=== PATIENT | female | born 1975 | race Caucasian/White ===

== ENCOUNTER → 2019-02-28 09:48 | Outpatient (CLI) | payer OTHER, SELFPAY ==
--- NOTE | 2019-02-28 09:50 | MR_ITS ---
PROCEDURE: MR LUMBAR SPINE WO CON CLINICAL INDICATION: back pain COMPARISON: No exams were available for comparison TECHNIQUE: Standard multiplanar multiecho sequences are performed without contrast. 3-D MIP and myelographic images are also rendered and reviewed FINDINGS: Alignment, vertebral body heights and signal from the osseous marrow elements appear normal. L4-5 level shows mild loss of disc hydration with mild bulge with central punctate focus of fluid signal suggesting annular tear. This finding as well as mild facet hypertrophy causes mild to moderate generalized thecal sac attenuation and mild crowding of the cauda equina nerve roots. The remainder of the disc levels are normal without bulges or herniation or central stenosis. Posterior elements are otherwise unremarkable. Nerve roots in the foraminal areas are normal. Conus is normal. Paraspinal areas are unremarkable. IMPRESSION: L4-5 degenerative change with bulge and annular tear along with facet arthrosis causing mild to moderate acquired central canal stenosis. Dictated by: Micah Mock 02/28/2019 11:15 Electronically signed by Micah Mock in [facility] 02/28/2019 11:15
--- NOTE | 2019-02-28 09:50 | US_ITS ---
PROCEDURE: US GALLBLADDER CLINICAL INDICATION: gastric pain COMPARISON: No exams were available for comparison FINDINGS: Common bile duct is normal measuring 2.9 millimeters. Visualized portions of the pancreas, IVC, portal vein, liver and right kidney are normal. There are multiple shadowing gallstones without fluid in the gallbladder fossa. The gallbladder wall is 2.1 millimeters in diameter which is normal. IMPRESSION: Uncomplicated cholelithiasis. Dictated by: Micah Mock 02/28/2019 13:01 Electronically signed by Micah Mock in [facility] 02/28/2019 13:01
== END ==
PROVIDERS: PCP Emergency Medicine; Visit Provider Emergency Medicine
DX: M54.5 Low back pain (principal); R10.9 Unspecified abdominal pain
CPT/HCPCS: 72148; 76376; 76705

== ENCOUNTER → 2019-03-06 13:19 | Outpatient (CLI) | payer OTHER, SELFPAY ==
[2019-03-06 13:32] LABS: Basophils % 0.6 % (0.1-2.0); Eosinophils # 0.1 K/mm3 (0.0-0.4); Eosinophils % 0.9 % (0.1-12.0); Hematocrit 40.7 % (37.0-47.0); Hemoglobin 12.8 g/dL (12.2-16.2); Lymphocytes # 1.4 K/mm3 (0.7-4.5); Lymphocytes % 25.4 % (10-50); Mean Corpuscular HGB Conc 31.4 g/dL (31.8-35.4); Mean Corpuscular Hemoglobin 28.8 pg (27.0-31.2); Mean Corpuscular Volume 91.5 fl (81-99); Mean Platelet Volume 7.7 fl (7.4-10.4); Monocytes # 0.4 K/mm3 (0.1-1.0); Monocytes % 6.6 % (1.7-9.3); Neutrophils # 3.6 K/mm3 (1.8-7.8); Neutrophils % 66.6 % (37.0-80.0); Platelet Count 359 K/mm3 (142-424); Red Blood Count 4.44 M/mm3 (4.20-5.40); Red Cell Distribution Width 14.1 % (11.5-17.5); White Blood Count 5.4 K/mm3 (4.8-10.8)
[2019-03-06 16:53] LABS: Alanine Aminotransferase 26 U/L (12-78); Albumin Level 4.2 gm/dL (3.4-5.0); Albumin/Globulin Ratio 1.2 (1.1-1.8); Alkaline Phosphatase 169 U/L (46-116); Anion Gap 13.2 mEq/L (5-15); Aspartate Amino Transferase 16 U/L (15-37); Bilirubin,Total 0.3 mg/dL (0.2-1.0); Blood Urea Nitrogen 7 mg/dL (7-18); Calcium 9.2 mg/dL (8.5-10.1); Carbon Dioxide 30 mmol/L (21.0-32.0); Chloride 91 mmol/L (98-107); Creatinine,Serum 0.67 mg/dL (0.55-1.02); Estimated Glomerular Filt Rate 97 ml/min (>60); GFR (African American) 117 ML/MIN (>60); Globulin 3.6 gm/dl (1.3-3.2); Glucose 87 mg/dL (74-106); Potassium 4.2 mmoL/L (3.5-5.1); Sodium 130 mmol/L (136-145); Total Protein,Serum 7.8 gm/dL (6.4-8.2)
== END ==
PROVIDERS: Visit Provider Surgery
DX: K80.20 Calculus of gallbladder without cholecystitis without obstruction (principal)
CPT/HCPCS: 36415; 80053; 85025

== ENCOUNTER → 2019-03-21 09:11 | Outpatient (POV) | payer OTHER, SELFPAY ==
[2019-03-21 09:30] VITALS: BP 124/64; PULSE 101; RESP 18; O2SAT 99; BMI 23.6
--- NOTE | 2019-03-21 10:10 | HMH.PMCON ---
Assessment and Plan (1) Low back pain Current visit: Yes Status: Chronic Qualifiers: Chronicity: chronic Category: Medical Code(s): M54.5 - Low back pain - Assessment and plan all Dx Assessment and Plan for all problems:: Given the patient's imaging and complaints, I do think she would benefit from a lumbar epidural steroid injection. She has not had any injections for greater than 5 years. We will schedule her for a lumbar epidural steroid injection at L4-L5. She is not on any anticoagulation therapy. She will continue with a home stretching program. We will also order the patient diclofenac 75 mg 1 tablet p.o. twice daily. We will see her back in the clinic following her procedure to reassess her symptoms. She has been instructed to contact the clinic if she has any concerns before her next appointment. Dr. Cao has reviewed this note and agrees with this plan of care. This note was dictated using voice recognition software and make contain errors or omissions. HPI - Data of Consult Patient: new to practice Consult date: 03/21/19 Requesting Physician: Zeina Lynn APRN Primary Care Provider: Bienvenido Gallegos MD - Consult Narrative History of present illness: Ms. Galvez is a 43 year old female who presents today for consultation for low back pain with radiation into her left leg. Patient says the pain has been ongoing for greater than 15 years. She says her pain starts in the low back radiates to the left leg causing numbness and tingling. Patient says that she is unable to walk or stand for more than 5 minutes. She says her left foot feels like it is going to fall off . Patient has tried injective therapy and has gotten little to no relief. She also says that she has tried physical therapy with out relief. Patient has tried oral medications, as well. Patient is currently taking gabapentin 100 mg 1 tablet p.o. 3 times daily. She says that she got about 20% relief with her gabapentin. Patient says that it is progressively getting worse. She is not taking any anti-inflammatories at this time. She is continuing with a home stretching program. Patient does rate her pain a 7 out of 10. CC: Zeina Lynn APRN [facility] History I have reviewed the patient's past medical history: Yes Medical History: Reports:: Anxiety, Depression Denies:: Cancer, Diabetes Mellitus Type 1, Diabetes Mellitus Type 2, MRSA, Seizures *Have you ever received a pneumonia vaccine?: No *Have you received a flu vaccine this season?: No Other Medical History: Denies: Blood Transfusion Reaction Laterality Cases: Left: Arthroscopy Knee, Right: Arthroscopy Shoulder Other Surgeries: Yes: Cholecystectomy, Diagnostic Lap, Hysterectomy-Total, Tubal Ligation Amputation: No Fractures: Yes - *Social History Smoking Status: Current every day smoker Tobacco Type: cigarettes # Packs/Day (cigarettes): 1 Alcohol Intake: never Alcohol Intake Frequency:: other Substance Use Type: denies use *Occupational Status:: employed Housing: house Household Members: family *Travel in the last 8 weeks: None - Psychiatric History Pschychiatric History:: Reports:: Anxiety, Depression Family Hx:: Cancer, Diabetes, Thyroid Disorder, Substance abuse Review of Systems - Review of Systems Review of Systems General: No recent weight changes, no fever, no sleep disturbances Respiratory: No cough, no shortness of air, no recurring pulmonary infections Cardiovascular/peripheral vascular: No chest pain, no palpitations, no edema, no shortness of breath Gastrointestinal: No new onset incontinence, normal bowel movements reported Genitourinary: No new onset incontinence Musculoskeletal: Back pain, left leg pain Psychiatric: Normal mood/affect Neurological: [Denies weakness in extremities], [denies balance issues] Meds Home Medications Medication Instructions Recorded Confirmed Type mirtazapine 15 mg tablet 15 mg PO QHS tab
--- NOTE | 2019-03-21 10:14 | P.CONS_ITS ---
Assessment and Plan (1) Low back pain Current visit: Yes Status: Chronic Qualifiers: Chronicity: chronic Category: Medical Code(s): M54.5 - Low back pain - Assessment and plan all Dx Assessment and Plan for all problems:: Given the patient's imaging and complaints, I do think she would benefit from a lumbar epidural steroid injection. She has not had any injections for greater than 5 years. We will schedule her for a lumbar epidural steroid injection at L4-L5. She is not on any anticoagulation therapy. She will continue with a home stretching program. We will also order the patient diclofenac 75 mg 1 tablet p.o. twice daily. We will see her back in the clinic following her procedure to reassess her symptoms. She has been instructed to contact the clinic if she has any concerns before her next appointment. Dr. Cao has reviewed this note and agrees with this plan of care. This note was dictated using voice recognition software and make contain errors or omissions. HPI - Data of Consult Patient: new to practice Consult date: 03/21/19 Requesting Physician: Zenia Lynn APRN Primary Care Provider: Bienvenido Gallegos MD - Consult Narrative History of present illness: Ms. Galvez is a 43 year old female who presents today for consultation for low back pain with radiation into her left leg. Patient says the pain has been ongoing for greater than 15 years. She says her pain starts in the low back radiates to the left leg causing numbness and tingling. Patient says that she is unable to walk or stand for more than 5 minutes. She says her left foot feels like it is going to fall off . Patient has tried injective therapy and has gotten little to no relief. She also says that she has tried physical therapy with out relief. Patient has tried oral medications, as well. Patient is currently taking gabapentin 100 mg 1 tablet p.o. 3 times daily. She says that she got about 20% relief with her gabapentin. Patient says that it is progressively getting worse. She is not taking any anti-inflammatories at this time. She is continuing with a home stretching program. Patient does rate her pain a 7 out of 10. CC: Zeina Lynn APRN [facility] History I have reviewed the patient's past medical history: Yes Medical History: Reports:: Anxiety, Depression Denies:: Cancer, Diabetes Mellitus Type 1, Diabetes Mellitus Type 2, MRSA, Seizures *Have you ever received a pneumonia vaccine?: No *Have you received a flu vaccine this season?: No Other Medical History: Denies: Blood Transfusion Reaction Laterality Cases: Left: Arthroscopy Knee, Right: Arthroscopy Shoulder Other Surgeries: Yes: Cholecystectomy, Diagnostic Lap, Hysterectomy-Total, Tubal Ligation Amputation: No Fractures: Yes - *Social History Smoking Status: Current every day smoker Tobacco Type: cigarettes # Packs/Day (cigarettes): 1 Alcohol Intake: never Alcohol Intake Frequency:: other Substance Use Type: denies use *Occupational Status:: employed Housing: house Household Members: family *Travel in the last 8 weeks: None - Psychiatric History Pschychiatric History:: Reports:: Anxiety, Depression Family Hx:: Cancer, Diabetes, Thyroid Disorder, Substance abuse Review of Systems - Review of Systems Review of Systems General: No recent weight changes, no fever, no sleep disturbances Respiratory: No cough, no shortness of air, no recurring pulmonary infections Cardiovascular/peripheral vascular: No chest pain, no palpitations, no edema, no shortness of breath Gastrointestinal: No ne
== END ==
PROVIDERS: PCP Emergency Medicine; Visit Provider Clinical Nurse Specialist Family Health
DX: M54.5 Low back pain (principal)
CPT/HCPCS: 99202

== ENCOUNTER → 2020-01-31 15:22 | Outpatient (CLI) | payer OTHER, SELFPAY ==
[2020-02-02 09:11] LABS: Covid-19 Nasal PCR Sendout UK Not Detected
== END ==
PROVIDERS: PCP Emergency Medicine; Visit Provider Nurse Practitioner
DX: Z03.818 Encounter for observation for suspected exposure to other biological agents ruled out (principal)
CPT/HCPCS: U0003

== ENCOUNTER → 2020-02-05 16:29 | Outpatient (CLI) | payer OTHER, SELFPAY ==
[2020-02-07 13:35] LABS: Covid-19 Nasal PCR Sendout Lex Not Detected
--- NOTE | 2020-02-09 14:21 | PC.NURSE ---
Pt called for covid results; results given after verification of id. results printed out as pt needs copy to go back to work
== END ==
PROVIDERS: PCP Emergency Medicine; Visit Provider Nurse Practitioner
DX: Z03.818 Encounter for observation for suspected exposure to other biological agents ruled out (principal)
CPT/HCPCS: U0004

== ENCOUNTER 2020-02-27 12:17 | Emergency (ER) | payer OTHER, SELFPAY ==
[2020-02-27 12:35] VITALS: BP 98/65; PULSE 85; RESP 20; TEMP 36.9; O2SAT 98; BMI 20.7
--- NOTE | 2020-02-27 12:45 | HMH.EDUTC ---
[facility] Disposition Clinical Impression: Exposure to COVID-19 virus Disposition: Home, Self-Care Condition on Discharge: Good Instructions: Preventing the Spread of Coronavirus Discharge Instructions Additional Instructions: Drink plenty of fluids. Take tylenol or ibuprofen for pain or fever. Follow up with your regular doctor. GO TO THE ER FOR ANY WORSENING SYMPTOMS FOLLOW THE DIRECTIONS ON THE COVID-19 HAND OUT THAT WE GAVE YOU REGARDING SELF-ISOLATION UNTIL YOU KNOW YOUR COVID-19 RESULTS Referrals: Bienvenido Gallegos MD [Primary Care Provider] - Time of Disposition: 12:46 Medical Decision Making - Medical Records Medical records reviewed: No: I reviewed the patient's medical records. - [place] Inquiry Pt receiving controlled substance: No Vital Signs: 02/27/20 12:35 Temperature 98.5 F Temperature Source Oral Pulse Rate [Right Brachial] 85 Respiratory Rate 20 Blood Pressure [Right Arm] 98/65 L Blood Pressure Mean [Right Arm] 76 Blood Pressure Source [Right Arm] Automatic Cuff Blood Pressure Position [Right Arm] Sitting 02 Sat by Pulse Oximetry 98 Oxygen Delivery Method Room Air Orders (Tests/Meds): ORDERS Category Date Time Status Covid-19 Nasal PCR ([facility]) Routine Lab 02/27/20 12:22 Ordered [facility] HPI - General Stated complaint: covid test per employer Time Seen by Provider: 02/27/20 12:40 Mode of Arrival: Ambulatory Source of Information: Patient Limitations: No Limitations Description of Symptoms (Recalled from Triage Doc. by RN): PATIENT NEEDING COVID TEST PER NEW EMPLOYER; DENIES ANY SYMPTOMS HEENT Symptoms (Recalled from RN notes): No Resp Symptoms (Recalled from RN notes): No Skin Symptoms (Recalled from RN notes): No MS Symptoms (Recalled from RN notes): No Functional Status (Recalled from RN notes): WNL - History of Present Illness Provider Complaint: She denies any complaints. She needs a covid-19 test for a new employer. - Related Data Home Medications Medication Instructions Recorded Confirmed mirtazapine 15 mg tablet 15 mg PO QHS PRN tab 10/16/19 12/18/19 Previous Rx's Medication Instructions Recorded gabapentin 800 mg tablet 800 mg PO TID #90 tab 11/18/19 oxycodone-acetaminophen 5 mg-325 1 tab PO TID #90 tab 12/18/19 mg tablet Allergies Allergy/AdvReac Type Severity Reaction Status Date / Time acetaminophen Allergy Intermediate Verified 12/18/19 10:29 [From Darvocet-N] codeine Allergy Intermediate Verified 12/18/19 10:29 [From Tylenol-Codeine] hydrocodone [From Vicodin] Allergy Intermediate Verified 12/18/19 10:29 propoxyphene Allergy Intermediate Verified 12/18/19 10:29 [From Darvocet-N] tramadol Allergy Intermediate Verified 12/18/19 10:29 morphine Allergy Verified 12/18/19 10:29 - Worker's Comp Is this a Worker's Comp case?: No [facility] History - Hepatitis A Screen Drug use history?: No High risk sexual behaviors?: No History of sexually transmitted infection?: No Currently employed?: No Childcare worker?: No Do you have indoor plumbing?: Yes Do you have electricity?: Yes Attestation statement:: This patient has been screened for Hepatitis A risk factors. I have reviewed the patient's past medical history: Yes Medical History: Reports:: Anxiety, Depression Denies:: Cancer, Diabetes Mellitus Type 1, Diabetes Mellitus Type 2, Internal Pacemaker, MRSA, Seizures Other Medical History: Reports: Blood Transfusion Reaction Comment: IBS. PELVIC ADHESIONS. ENDOMETRIOSIS Laterality Cases: Right: Arthroscopy Shoulder, Bilateral: Arthroscopy Knee Other Surgeries: Yes: Cholecystectomy, Diagnostic Lap, Hysterectomy-Total, Tubal Ligation. No: Pacemaker Amputation: No Fractures: Yes Comment: BTL---2000. BTC---2000. TVH, TVT-O, DX. LSC, EXP. LAP, D&C---2003. left and rt knee sx. RT. SHOULDER SX W. PLATE AND ANGEL---2004. DX. LAP, EXPL. LAP, RT. SO, EXTENSIVE LYSIS OF ADHESIONS, PARTIAL OMENX---2005. R
[2020-02-27 12:48] VITALS: BP 98/65; PULSE 85; RESP 20; TEMP 36.9; O2SAT 98
== END 2020-02-27 12:51 | disposition home or self-care (01) ==
PROVIDERS: Emergency Provider Nurse Practitioner Family; PCP Emergency Medicine
DX: Z20.828 Contact with and (suspected) exposure to other viral communicable diseases (principal); F41.8 Other specified anxiety disorders; F17.210 Nicotine dependence, cigarettes, uncomplicated; Z88.5 Allergy status to narcotic agent; Z90.49 Acquired absence of other specified parts of digestive tract; Z90.710 Acquired absence of both cervix and uterus
CPT/HCPCS: 99201; U0003

== ENCOUNTER → 2021-01-12 15:22 | Outpatient (CLI) | payer OTHER, SELFPAY ==
[2021-01-12 15:49] LABS: Basophils % 0.6 % (0.1-2.0); Eosinophils # 0.1 K/mm3 (0.0-0.4); Eosinophils % 1.9 % (0.1-12.0); Hematocrit 39.8 % (37.0-47.0); Hemoglobin 12.9 g/dL (12.2-16.2); Lymphocytes # 2.2 K/mm3 (0.7-4.5); Lymphocytes % 42.3 % (10-50); Mean Corpuscular HGB Conc 32.6 g/dL (31.8-35.4); Mean Corpuscular Hemoglobin 28.9 pg (27.0-31.2); Mean Corpuscular Volume 88.8 fl (81-99); Mean Platelet Volume 8.9 fl (7.4-10.4); Monocytes # 0.3 K/mm3 (0.1-1.0); Monocytes % 5.4 % (1.7-9.3); Neutrophils # 2.6 K/mm3 (1.8-7.8); Neutrophils % 49.8 % (37.0-80.0); Platelet Count 226 K/mm3 (142-424); Red Blood Count 4.48 M/mm3 (4.20-5.40); Red Cell Distribution Width 13.2 % (11.5-17.5); White Blood Count 5.2 K/mm3 (4.8-10.8)
[2021-01-12 15:51] LABS: Alanine Aminotransferase 14 U/L (12-78); Albumin Level 4.5 g/dl (3.5-5.0); Albumin/Globulin Ratio 1.6 (1.1-1.8); Alkaline Phosphatase 89 U/L (38-126); Anion Gap 8.1 mEq/L (5-15); Aspartate Amino Transferase 27 U/L (14-36); Bilirubin,Total 0.6 mg/dl (0.2-1.3); Blood Urea Nitrogen 10 mg/dl (7-17); Calcium 9.4 mg/dl (8.4-10.2); Carbon Dioxide 34 mmol/L (22.0-30.0); Chloride 101 mmol/L (98-107); Chol/HDL Ratio 2.3 (1-3.5); Cholesterol 179 mg/dl (140-200); Estimated Glomerular Filt Rate 91 ml/min (>60); GFR (African American) 110 ML/MIN (>60); Globulin 2.9 g/dL (1.3-3.2); Glucose 97 mg/dl (74-100); HDL Cholesterol 78 mg/dl (40-60); Potassium 4.1 mmoL/L (3.5-5.1); Sodium 139 mmol/L (136-145); Total Protein,Serum 7.4 g/dl (6.3-8.2); Triglycerides 123 mg/dl (30-150); VLDL Cholesterol 25 mg/dL (0-40)
[2021-01-12 16:02] LABS: C-Reactive Protein 1.5 mg/L (0-4); Direct LDL Cholesterol 72.86 mg/dL (100-129)
[2021-01-12 16:08] LABS: Free T4 (Free Thyroxine) 1.24 ng/dl (0.78-2.19)
[2021-01-12 16:09] LABS: 25-OH Vitamin D, Total 50.3 ng/mL (30-100)
[2021-01-12 16:19] LABS: Erythrocyte Sedimentation Rate 16 mm/hr (0-20)
[2021-01-12 16:22] LABS: Thyroid Stimulating Hormone 1.96 uIU/mL (0.465-4.68)
== END ==
PROVIDERS: Visit Provider Emergency Medicine
DX: R53.83 Other fatigue (principal); E55.9 Vitamin D deficiency, unspecified
CPT/HCPCS: 80053; 80061; 82306; 84439; 84443; 85025; 85651; 86140

== ENCOUNTER → 2021-02-15 16:31 | Outpatient (CLI) | payer OTHER, SELFPAY | PROVIDERS: PCP Emergency Medicine; Visit Provider Nurse Practitioner | DX: Z20.822 Contact with and (suspected) exposure to COVID-19 (principal) | CPT/HCPCS: C9803; U0003; U0005 ==

== ENCOUNTER → 2021-03-26 10:52 | Outpatient (CLI) | payer OTHER, SELFPAY | PROVIDERS: PCP Emergency Medicine; Visit Provider Nurse Practitioner | DX: Z20.822 Contact with and (suspected) exposure to COVID-19 (principal) | CPT/HCPCS: C9803; U0003; U0005 ==

== ENCOUNTER → 2021-06-01 14:13 | Outpatient (CLI) | payer OTHER, SELFPAY ==
[2021-06-01 16:03] LABS: Amphetamine/Metha Screen,Urine Negative ng/ml (<1000); Barbiturates Screen,Urine Negative ng/ml (<200)
[2021-06-01 16:04] LABS: Cannabinoid Screen,Urine Negative ng/ml (<50)
[2021-06-01 16:05] LABS: Cocaine Screen,Urine Negative ng/ml (<300)
[2021-06-01 16:06] LABS: Methadone Screen,Urine Negative ng/ml (<300); Opiate Screen,Urine Negative ng/ml (<300)
[2021-06-01 16:07] LABS: Phencyclidine Screen,Urine Negative ng/ml (<25)
[2021-06-01 16:15] LABS: Benzodiazepines Screen,Urine Negative ng/ml (<200)
== END ==
PROVIDERS: Visit Provider Emergency Medicine
DX: Z79.899 Other long term (current) drug therapy (principal)
CPT/HCPCS: 80305

== ENCOUNTER 2021-06-19 13:00 | Emergency (ER) | payer OTHER, SELFPAY ==
[2021-06-19 13:36] VITALS: BP 0/0; PULSE 0; RESP 0; TEMP -17.7; TEMP 0
== END 2021-06-19 13:37 | disposition left against medical advice (07) ==
LOC: UTC 13:02
PROVIDERS: Emergency Provider Nurse Practitioner Family; PCP Emergency Medicine
DX: Z53.21 Procedure and treatment not carried out due to patient leaving prior to being seen by health care provider (principal)

== ENCOUNTER → 2021-06-19 13:32 | Outpatient (CLI) | payer OTHER, SELFPAY | PROVIDERS: PCP Emergency Medicine; Visit Provider Nurse Practitioner Family | DX: U07.1 COVID-19 (principal) | CPT/HCPCS: C9803; U0003; U0005 ==

== ENCOUNTER → 2021-12-20 10:39 | Outpatient (CLI) | payer OTHER, SELFPAY ==
[2021-12-20 11:20] LABS: Eosinophils # 0.1 K/mm3 (0.0-0.4); Eosinophils % 1.9 % (0.1-12.0); Hemoglobin 13.2 g/dL (12.2-16.2); Lymphocytes # 1.8 K/mm3 (0.7-4.5); Lymphocytes % 49.6 % (10-50); Mean Corpuscular HGB Conc 33.1 g/dL (31.8-35.4); Mean Corpuscular Hemoglobin 29.4 pg (27.0-31.2); Mean Platelet Volume 7.8 fl (7.4-10.4); Monocytes # 0.2 K/mm3 (0.1-1.0); Neutrophils # 1.5 K/mm3 (1.8-7.8); Neutrophils % 41.5 % (37.0-80.0); Platelet Count 208 K/mm3 (142-424); Red Cell Distribution Width 12.8 % (11.5-17.5); White Blood Count 3.7 K/mm3 (4.8-10.8)
[2021-12-20 11:40] LABS: Chloride 98 mmol/L (98-107)
[2021-12-20 11:41] LABS: Potassium 4.2 mmoL/L (3.5-5.1); Sodium 139 mmol/L (136-145)
[2021-12-20 11:43] LABS: Alanine Aminotransferase 17 U/L (12-78); Alkaline Phosphatase 103 U/L (38-126); Anion Gap 11.2 mEq/L (5-15); Aspartate Amino Transferase 36 U/L (14-36); Bilirubin,Direct 0.1 mg/dl (0.0-0.4); Bilirubin,Indirect 0.3 mg/dL (0.0-0.9); Bilirubin,Total 0.4 mg/dl (0.2-1.3); Bilirubin,Unconjugated 0.3 mg/dL (0.0-1.1); Blood Urea Nitrogen 5 mg/dl (7-17); Calcium 10.1 mg/dl (8.4-10.2); Carbon Dioxide 34 mmol/L (22.0-30.0); Estimated Glomerular Filt Rate 90 ml/min (>60); GFR (African American) 109 ML/MIN (>60); Glucose 112 mg/dl (74-100)
[2021-12-20 11:44] LABS: Albumin Level 4.7 g/dl (3.5-5.0); Total Protein,Serum 7.8 g/dl (6.3-8.2)
[2021-12-23 22:11] LABS: Hepatitis C Antibody 0.2
[2021-12-23 22:12] LABS: HIV Screen 4th Generation wRfx Non Reactive; Hep A Ab, IgM Negative; Hepatitis B Core Antibody IgM Negative; Hepatitis B Surface Antigen Negative
== END ==
PROVIDERS: PCP Emergency Medicine; Visit Provider Emergency Medicine
DX: F11.20 Opioid dependence, uncomplicated (principal)
CPT/HCPCS: 36415; 80048; 80074; 80076; 85025; 86703; G0432

== ENCOUNTER → 2022-02-01 14:38 | Outpatient (CLI) | payer OTHER, SELFPAY | PROVIDERS: PCP Emergency Medicine; Visit Provider Emergency Medicine | DX: U07.1 COVID-19 (principal) | CPT/HCPCS: C9803; U0003; U0005 ==

== ENCOUNTER 2022-05-09 18:06 | Emergency (ER) | payer OTHER, SELFPAY ==
[2022-05-09 18:11] VITALS: BP 102/55; PULSE 72; RESP 18; TEMP 36.7; O2SAT 98; BMI 19.5
--- NOTE | 2022-05-09 18:51 | XR_ITS ---
PROCEDURE INFORMATION: Exam: XR Chest Exam date and time: 05/09/2022 7:15 PM Age: 46 years old Clinical indication: Cough and fever; Additional info: Concern for pneumonia TECHNIQUE: Imaging protocol: Radiologic exam of the chest. Views: 1 view. COMPARISON: No relevant prior studies available. FINDINGS: Lungs: Stigmata of old granulomatous disease. Bilateral apical scarring. No consolidating pneumonia. Pleural spaces: Unremarkable. No pleural effusion. No pneumothorax. Heart/Mediastinum: Unremarkable. No cardiomegaly. Bones/joints: Postsurgical changes of the right humerus. IMPRESSION: No consolidating pneumonia.
[2022-05-09 18:59] LABS: Coronavirus 19, PCR Not Detected (NotDetected); Influenza A, PCR Not Detected (NotDetected); Influenza B, PCR Not Detected (NotDetected)
[2022-05-09 19:30] VITALS: BP 85/53; PULSE 59; O2SAT 99
--- NOTE | 2022-05-09 19:51 | HMH.EDGENADL ---
Discharge Plan Disposition Patient Disposition: Home, Self-Care Prescriptions Prescriptions: New azithromycin [azithromycin] 250 mg tablet 250 mg PO DIRECTED Qty: 6 0RF Rx Instructions: Take two (2) tablets on day #1, then one (1) tablet day #2 thru #5 prednisone [prednisone] 20 mg tablet 20 mg PO BID Qty: 10 0RF No Action buprenorphine-naloxone 8-2 mg tablet, sublingual 1.5 tab SUBLINGUAL DAILY gabapentin 800 mg tablet 800 mg PO QID Qty: 120 2RF mirtazapine [Remeron] 15 mg tablet 7.5 mg PO DAILY Qty: 60 0RF bupropion HCl 75 mg tablet See Rx Instructions .ROUTE .COMPLEX Qty: 60 5RF Dose Instruction: TAKE ONE TABLET BY MOUTH TWICE DAILY Rx Instructions: TAKE ONE TABLET BY MOUTH TWICE DAILY Referrals Follow up/Referrals: Bienvenido Gallegos MD [Primary Care Provider] - See instructions Clinical Impressions Clinical Impression: Acute viral syndrome Discharge ED Provider: Jj Oropeza General Adult HPI General Chief complaint: Upper Respiratory Infection Stated complaint: body aches, fever, sore throat Time Seen by Provider: 05/09/22 18:15 Mode of Arrival: Ambulatory Source of Information: Patient Limitations: No Limitations Description of Symptoms (Recalled from ER Triage Doc. by RN): Pt reports cough, headache, body aches, sore throat, tired feeling and fever today. History of Present Illness HPI narrative: Patient is a 46-year-old female who presents with multiple complaints. She says that today she started to get cough, headache, body aches, sore throat, malaise and fever. She says that it got progressively worse and she has pain throughout her entire body. She has felt a little nauseous but has not vomited. Has not taken anything for symptoms. She has had cough and congestion as well. Denies any chest pain. Denies any pain with deep inspiration. She does endorse some green sputum production. Related Data Home Medications Medication Instructions Recorded Confirmed buprenorphine 8 mg-naloxone 2 mg 1.5 tab sublingual DAILY 01/12/21 02/14/22 sublingual tablet Previous Rx's Medication Instructions Recorded mirtazapine 15 mg tablet (Remeron) 7.5 mg PO DAILY #60 tabs 01/13/22 gabapentin 800 mg tablet 800 mg PO QID #120 tabs 02/14/22 bupropion HCl 75 mg tablet See Rx Instructions .Route 02/28/22 .COMPLEX #60 tabs azithromycin 250 mg tablet 250 mg PO DIRECTED #6 tabs 05/09/22 prednisone 20 mg tablet 20 mg PO BID #10 tabs 05/09/22 Allergies Allergy/AdvReac Type Severity Reaction Status Date / Time acetaminophen Allergy Intermediate Verified 02/14/22 11:01 [From Darvocet-N] codeine Allergy Intermediate Verified 02/14/22 11:01 [From Tylenol-Codeine] hydrocodone [From Vicodin] Allergy Intermediate Verified 02/14/22 11:01 propoxyphene Allergy Intermediate Verified 02/14/22 11:01 [From Darvocet-N] tramadol Allergy Intermediate Verified 02/14/22 11:01 morphine Allergy Verified 02/14/22 11:01 [facility] Disclaimer: The information contained in this section may have been updated after the patient was seen, as this information can be updated by other users. Social History Smoking Status: Current every day smoker tobacco type: e-cigarettes second hand exposure: No alcohol intake: never substance use type: former substance user current occupational status: other Travel in the last 8 weeks: None household members: family housing: house caffeine: Yes ROS Obtained: Yes All systems reviewed & no additional complaints except as documented A 14 point review of system was obtained and otherwise negative except per HPI Physical Exam General General appearance: alert and in no apparent distress Head Head exam: atraumatic, normocephalic and normal inspection Eye Eye exam: Present normal appearance, PERRL and EOMI ENT ENT exam: Present dayna
[2022-05-09 20:52] VITALS: BP 110/63; PULSE 62; RESP 18; TEMP 36.6; O2SAT 98
[2022-05-09 20:56] VITALS: BP 110/63; PULSE 58; RESP 16; TEMP 37.2; O2SAT 98
== END 2022-05-09 20:55 | disposition home or self-care (01) ==
PROVIDERS: Emergency Provider Student in an Organized Health Care Education/Training Program; PCP Emergency Medicine
DX: R52 Pain, unspecified (principal); R50.9 Fever, unspecified; J02.9 Acute pharyngitis, unspecified; B34.9 Viral infection, unspecified
CPT/HCPCS: 71045; 96372; 99283; C9803; U0003; U0005

== ENCOUNTER → 2022-05-11 15:15 | Outpatient (CLI) | payer OTHER, SELFPAY ==
[2022-05-11 17:12] LABS: Adenovirus,PCR Not Detected (NotDetected); Bordetella Pertussis Not Detected (NotDetected); Chlamydophila Pneumoniae, PCR Not Detected (NotDetected); Coronavirus 19, PCR Not Detected (NotDetected); Coronavirus 229E Not Detected (NotDetected); Coronavirus NL63 Not Detected (NotDetected); Coronavirus OC43 Not Detected (NotDetected); Coronovirus HKU1,PCR Not Detected (NotDetected); Human Metapneumovirus Not Detected (NotDetected); Influenza A, PCR Not Detected (NotDetected); Influenza AH1, PCR Not Detected (NotDetected); Influenza AH3,PCR Not Detected (NotDetected); Influenza B, PCR Not Detected (NotDetected); Mycoplasma Pneumoniae, PCR Not Detected (NotDetected); Parainfluenza 1, PCR Not Detected (NotDetected); Parainfluenza 2, PCR Not Detected (NotDetected); Parainfluenza 3, PCR Not Detected (NotDetected); Parainfluenza 4, PCR Not Detected (NotDetected); Respiratory Syncytial Virus Not Detected (NotDetected); Rhinovirus/Enterovirus Not Detected (NotDetected)
[2022-05-12 11:16] LABS: Influenza AH1, 2009 Detected (NotDetected)
== END ==
PROVIDERS: PCP Nurse Practitioner Family; Visit Provider Nurse Practitioner Family
DX: J09.X2 Influenza due to identified novel influenza A virus with other respiratory manifestations (principal); R51.9 Headache, unspecified; R53.1 Weakness; R11.10 Vomiting, unspecified
CPT/HCPCS: 87581; 87632; 87798; C9803; U0003; U0005

== ENCOUNTER 2022-11-07 17:28 | Emergency (ER) | payer OTHER, SELFPAY ==
[2022-11-07 17:29] VITALS: BP 113/72; PULSE 77; RESP 18; TEMP 36.6; O2SAT 99; BMI 17.7
--- NOTE | 2022-11-07 17:44 | EXP.UTC ---
Discharge Plan Disposition Patient Disposition: Still a Patient Condition: Good Prescriptions Prescriptions: New amoxicillin-pot clavulanate 875-125 mg Tablet 1 tab PO Q12H Qty: 20 0RF No Action buprenorphine-naloxone 8-2 mg tablet, sublingual 1.5 tab SUBLINGUAL DAILY albuterol sulfate 90 mcg/actuation HFA aerosol inhaler 2 puff inhalation Q4-6H PRN (Reason: shortness of breath or wheezing) Qty: 8.5 0RF lidocaine 5 % adhesive patch,medicated 1 patch topical DAILY Qty: 30 0RF Rx Instructions: leave on most painful area for up to 12 hrs diclofenac sodium 1 % gel 2 g topical QID Qty: 100 0RF Rx Instructions: apply to single elbow, wrist or hand; for hand includes palm/fingers/back of hand gabapentin 800 mg tablet 800 mg PO QID Qty: 120 2RF bupropion HCl 75 mg tablet See Rx Instructions .ROUTE .COMPLEX Qty: 60 5RF Dose Instruction: TAKE ONE TABLET BY MOUTH TWICE DAILY Rx Instructions: TAKE ONE TABLET BY MOUTH TWICE DAILY mirtazapine [Remeron] 15 mg tablet 7.5 mg PO DAILY Qty: 60 0RF Referrals Follow up/Referrals: Bienvenido Gallegos MD [Primary Care Provider] - See instructions Activity Restrictions/Add. Instructions Additional Instructions/Restrictions: Use dental balls as discussed in the [facility] Take antibiotics as prescribed Follow up with your Dentist, call tomorrow and inform them of swelling and abcess Return if needed Over the counter Ibuprofen if you can take it may help with pain Clinical Impressions Clinical Impression: Dental abscess Stand Alone Forms Stand Alone Forms: Work/School Release Instructions Patient Instructions: Tooth Abscess, Amoxicillin and Clavulanic Acid Discharge ED Provider: Jessica Lyle [facility] General Stated complaint: jaw pain, swollen, hot to the touch Mode of Arrival: Ambulatory Source of Information: Patient Limitations: No Limitations Time Seen by Provider: 11/07/22 17:44 Description of Symptoms (Recalled from Triage Doc. by RN): Patient states the left side of her jaw swelled up and she noticed it about 2 hours ago. HEENT Symptoms (Recalled from RN notes): Yes Resp Symptoms (Recalled from RN notes): No Skin Symptoms (Recalled from RN notes): No MS Symptoms (Recalled from RN notes): No Functional Status (Recalled from RN notes): wnl History of Present Illness Provider Complaint: Patient states that she has several broken teeth on her left upper gum area and she is suppose to see dentist on December 02 for dentures States that earlier today she noticed she was starting to have swelling in her left upper jaw area that has continued to get worse throughout the day and this evening it was worse so she came in to get checked Related Data Home Medications Medication Instructions Recorded Confirmed buprenorphine 8 mg-naloxone 2 mg 1.5 tab sublingual DAILY 01/12/21 11/04/22 sublingual tablet Previous Rx's Medication Instructions Recorded albuterol sulfate 90 mcg/actuation 2 puff inhalation Q4-6H PRN 05/11/22 aerosol inhaler shortness of breath or wheezing #8.5 grams bupropion HCl 75 mg tablet See Rx Instructions .Route 08/09/22 .COMPLEX #60 tabs mirtazapine 15 mg tablet (Remeron) 7.5 mg PO DAILY #60 tabs 08/09/22 diclofenac sodium 1 % topical gel 2 g topical QID #100 grams 11/04/22 gabapentin 800 mg tablet 800 mg PO QID #120 tabs 11/04/22 lidocaine 5 % topical patch 1 patch topical DAILY #30 ea 11/04/22 amoxicillin 875 mg-potassium 1 tab PO Q12H #20 tabs 11/07/22 clavulanate 125 mg tablet Allergies Allergy/AdvReac Type Severity Reaction Status Date / Time acetaminophen Allergy Intermediate Verified 11/04/22 08:48 [From Darvocet-N] codeine Allergy Intermediate Verified 11/04/22 08:48 [From Tylenol-Codeine] hydrocodone [From Vicodin] Allergy Intermediate Verified 11/04/22 08:48 propoxyphene Allergy Intermediate Verified 11/04/22 08:48 [From Darvocet-N] tramadol Allerg
[2022-11-07 18:06] VITALS: BP 113/72; PULSE 77; RESP 18; TEMP 36.6; O2SAT 99
== END 2022-11-07 18:07 | disposition still patient (30) ==
PROVIDERS: Emergency Provider Nurse Practitioner; PCP Emergency Medicine
DX: R68.84 Jaw pain (principal); R22.0 Localized swelling, mass and lump, head; K04.7 Periapical abscess without sinus; F17.290 Nicotine dependence, other tobacco product, uncomplicated
CPT/HCPCS: 99212; 99214; G0463

== ENCOUNTER 2022-11-08 02:43 | Emergency (ER) | payer OTHER, SELFPAY ==
[2022-11-08 02:45] VITALS: BP 132/110; PULSE 72; RESP 18; TEMP 36.8; O2SAT 98; BMI 17.7
[2022-11-08 02:53] VITALS: BMI 17.7
[2022-11-08 03:03] LABS: Basophils % 0.5 % (0.1-2.0); Eosinophils # 0.1 K/mm3 (0.0-0.4); Eosinophils % 2.2 % (0.1-12.0); Hematocrit 41.9 % (37.0-47.0); Hemoglobin 12.9 g/dL (12.2-16.2); Lymphocytes # 1.5 K/mm3 (0.7-4.5); Lymphocytes % 28.5 % (10-50); Mean Corpuscular HGB Conc 30.7 g/dL (31.8-35.4); Mean Corpuscular Volume 91.2 fl (81-99); Mean Platelet Volume 8.2 fl (7.4-10.4); Monocytes # 0.3 K/mm3 (0.1-1.0); Monocytes % 5.3 % (1.7-9.3); Neutrophils # 3.3 K/mm3 (1.8-7.8); Neutrophils % 63.5 % (37.0-80.0); Platelet Count 232 K/mm3 (142-424); Red Blood Count 4.59 M/mm3 (4.20-5.40); Red Cell Distribution Width 13.6 % (11.5-17.5); White Blood Count 5.2 K/mm3 (4.8-10.8)
--- NOTE | 2022-11-08 03:03 | HMH.EDDENT ---
Discharge Plan Disposition Patient Disposition: Home, Self-Care Prescriptions Prescriptions: New ketorolac 10 mg tablet 10 mg PO Q6H PRN (Reason: pain) 3 Days Qty: 14 0RF No Action buprenorphine-naloxone 8-2 mg tablet, sublingual 1.5 tab SUBLINGUAL DAILY albuterol sulfate 90 mcg/actuation HFA aerosol inhaler 2 puff inhalation Q4-6H PRN (Reason: shortness of breath or wheezing) Qty: 8.5 0RF lidocaine 5 % adhesive patch,medicated 1 patch topical DAILY Qty: 30 0RF Rx Instructions: leave on most painful area for up to 12 hrs diclofenac sodium 1 % gel 2 g topical QID Qty: 100 0RF Rx Instructions: apply to single elbow, wrist or hand; for hand includes palm/fingers/back of hand gabapentin 800 mg tablet 800 mg PO QID Qty: 120 2RF bupropion HCl 75 mg tablet See Rx Instructions .ROUTE .COMPLEX Qty: 60 5RF Dose Instruction: TAKE ONE TABLET BY MOUTH TWICE DAILY Rx Instructions: TAKE ONE TABLET BY MOUTH TWICE DAILY mirtazapine [Remeron] 15 mg tablet 7.5 mg PO DAILY Qty: 60 0RF amoxicillin-pot clavulanate 875-125 mg Tablet 1 tab PO Q12H Qty: 20 0RF Referrals Follow up/Referrals: Bienvenido Gallegos MD [Primary Care Provider] - See instructions Clinical Impressions Clinical Impression: Dental infection, Pain, dental Instructions Patient Instructions: DI for Dental Pain Discharge ED Provider: Rosy (ED)[facility] HPI General Chief complaint: Dental/Oral Stated complaint: Left side face swelling Time Seen by Provider: 11/08/22 02:55 Mode of Arrival: Ambulatory Source of Information: Patient and Medical Record Limitations: No Limitations Description of Symptoms (Recalled from ER Triage Doc. by RN): Pt arrives with complaints of increased left sided facial swelling and pain. Pt was seen in [facility] yesterday and dx with a tooth abscess, given abx and dental balls. Pt states her teeth are bad but she is scheduled to have dentures placed on December 02. History of Present Illness HPI Narrative: pt with lt facial swelling and pain - was seen in the [facility] earlier today and started on abx - taken 1 dose Complaint: tooth pain Onset (ago): hour(s) Duration: constant Severity: moderate Context: history of dental caries and poor dental care Associated symptoms: other (lt max area swelling ) Related Data Home Medications Medication Instructions Recorded Confirmed buprenorphine 8 mg-naloxone 2 mg 1.5 tab sublingual DAILY 01/12/21 11/04/22 sublingual tablet Previous Rx's Medication Instructions Recorded albuterol sulfate 90 mcg/actuation 2 puff inhalation Q4-6H PRN 05/11/22 aerosol inhaler shortness of breath or wheezing #8.5 grams bupropion HCl 75 mg tablet See Rx Instructions .Route 08/09/22 .COMPLEX #60 tabs mirtazapine 15 mg tablet (Remeron) 7.5 mg PO DAILY #60 tabs 08/09/22 diclofenac sodium 1 % topical gel 2 g topical QID #100 grams 11/04/22 gabapentin 800 mg tablet 800 mg PO QID #120 tabs 11/04/22 lidocaine 5 % topical patch 1 patch topical DAILY #30 ea 11/04/22 amoxicillin 875 mg-potassium 1 tab PO Q12H #20 tabs 11/07/22 clavulanate 125 mg tablet ketorolac 10 mg tablet 10 mg PO Q6H PRN pain 3 days #14 11/08/22 tabs Allergies Allergy/AdvReac Type Severity Reaction Status Date / Time acetaminophen Allergy Intermediate Verified 11/04/22 08:48 [From Darvocet-N] codeine Allergy Intermediate Verified 11/04/22 08:48 [From Tylenol-Codeine] hydrocodone [From Vicodin] Allergy Intermediate Verified 11/04/22 08:48 propoxyphene Allergy Intermediate Verified 11/04/22 08:48 [From Darvocet-N] tramadol Allergy Intermediate Verified 11/04/22 08:48 morphine Allergy Verified 11/04/22 08:48 [facility] Disclaimer: The information contained in this section may have been updated after the patient was seen, as this information can be updated by other users. Social History (Reviewed 11/04/22 @ 08:48 by Awais Bush
[2022-11-08 03:17] LABS: Alanine Aminotransferase 17 U/L (12-78); Albumin Level 4.6 g/dl (3.5-5.0); Albumin/Globulin Ratio 1.2 (1.1-1.8); Alkaline Phosphatase 119 U/L (38-126); Anion Gap 13.1 mEq/L (5-15); Aspartate Amino Transferase 29 U/L (14-36); Bilirubin,Total 0.4 mg/dl (0.2-1.3); Blood Urea Nitrogen 9 mg/dl (7-17); Calcium 9.3 mg/dl (8.4-10.2); Carbon Dioxide 34 mmol/L (22.0-30.0); Chloride 96 mmol/L (98-107); Creatinine Clearance Estimated 86 mL/min (50-200); Estimated Glomerular Filt Rate 90 ml/min (>60); GFR (African American) 109 ML/MIN (>60); Globulin 3.7 g/dL (1.3-3.2); Glucose 158 mg/dl (74-100); Potassium 4.1 mmoL/L (3.5-5.1); Sodium 139 mmol/L (136-145); Total Protein,Serum 8.3 g/dl (6.3-8.2)
[2022-11-08 03:22] LABS: C-Reactive Protein 8.7 mg/L (0-4)
[2022-11-08 03:36] LABS: Procalcitonin 0.042 ng/mL (0.0-2.0)
[2022-11-08 03:47] LABS: Erythrocyte Sedimentation Rate 58 mm/hr (0-20)
[2022-11-08 03:56] VITALS: BP 97/51; PULSE 70; RESP 18; TEMP 36.8; O2SAT 98
== END 2022-11-08 04:02 | disposition home or self-care (01) ==
PROVIDERS: Emergency Provider Emergency Medicine; PCP Emergency Medicine
DX: R22.0 Localized swelling, mass and lump, head (principal); R51.9 Headache, unspecified; K04.7 Periapical abscess without sinus; F17.290 Nicotine dependence, other tobacco product, uncomplicated
CPT/HCPCS: 80053; 84145; 85025; 85651; 86140; 96361; 96374; 96375; 99284; 99285; J0696

== ENCOUNTER → 2022-11-12 09:37 | Outpatient (CLI) | payer OTHER, SELFPAY ==
[2022-11-11 18:11] LABS: Barbiturates Screen,Urine Negative ng/ml (<200); Benzodiazepines Screen,Urine Negative ng/ml (<200)
[2022-11-11 18:12] LABS: Amphetamine/Metha Screen,Urine Negative ng/ml (<1000)
[2022-11-11 18:13] LABS: Cocaine Screen,Urine Negative ng/ml (<300); Methadone Screen,Urine Negative ng/ml (<300)
[2022-11-11 18:14] LABS: Cannabinoid Screen,Urine Negative ng/ml (<50)
[2022-11-11 18:15] LABS: Opiate Screen,Urine Negative ng/ml (<300); Phencyclidine Screen,Urine Negative ng/ml (<25)
== END ==
PROVIDERS: PCP Emergency Medicine; Visit Provider Emergency Medicine
DX: Z79.899 Other long term (current) drug therapy (principal)
CPT/HCPCS: 80305

== ENCOUNTER → 2022-11-16 14:57 | Outpatient (CLI) | payer OTHER, SELFPAY ==
--- NOTE | 2022-11-16 14:57 | MR_ITS ---
FINAL REPORT CLINICAL HISTORY: back pain left leg pain COMPARISON: None FINDINGS: Multiplanar MR imaging of the lumbar spine was performed without contrast. On the sagittal T2-weighted images, there is abnormal decreased signal in the L4-L5 and L5-S1 discs. The vertebrae are of normal height. The vertebral alignment is normal. L1-2: There is no significant canal stenosis or neural foraminal narrowing. L2-3: There is no significant canal stenosis or neural foraminal narrowing. L3-4: There is no significant canal stenosis or neural foraminal narrowing. L4-5: There is a moderate diffuse disc bulge with moderate spinal and bilateral neural foraminal narrowing. L5-S1: There is a small paracentral disc extrusion which extends inferiorly from the disc space. This produces mild narrowing of the left L5-S1 foramen and the left lateral recess. IMPRESSION: L4-5 moderate bulge, canal and bilateral neural foraminal narrowing. L5-S1 left paracentral disc extrusion extending inferiorly with narrowing of the L5-S1 neural foramen and the lateral recess. Reviewed, Interpreted and Dictated by Bib Maxwell MD Transcribed by Rachelle Lu Authenticated and [facility]
== END ==
PROVIDERS: PCP Emergency Medicine; Visit Provider Emergency Medicine
DX: M54.9 Dorsalgia, unspecified (principal); M54.16 Radiculopathy, lumbar region
CPT/HCPCS: 72148; 76376

== ENCOUNTER → 2022-12-30 23:23 | Outpatient (CLI) | payer OTHER, SELFPAY ==
[2022-12-30 19:37] LABS: Amphetamine/Metha Screen,Urine Negative ng/ml (<1000); Barbiturates Screen,Urine Negative ng/ml (<200)
[2022-12-30 19:38] LABS: Benzodiazepines Screen,Urine Negative ng/ml (<200)
[2022-12-30 19:39] LABS: Cannabinoid Screen,Urine Negative ng/ml (<50)
[2022-12-30 19:40] LABS: Cocaine Screen,Urine Negative ng/ml (<300); Methadone Screen,Urine Negative ng/ml (<300)
[2022-12-30 19:41] LABS: Opiate Screen,Urine Negative ng/ml (<300); Phencyclidine Screen,Urine Negative ng/ml (<25)
== END ==
PROVIDERS: PCP Emergency Medicine; Visit Provider Emergency Medicine
DX: M54.16 Radiculopathy, lumbar region (principal)
CPT/HCPCS: 80305

== ENCOUNTER 2023-02-10 09:30 | Outpatient (RCR) | payer OTHER, SELFPAY ==
--- NOTE | 2023-01-27 08:39 | HMH.PTOPEV ---
PT Outpatient Evaluation Rehab PT Outpatient Evaluation Start: 01/27/23 08:27 Freq: Status: Active Protocol: Document 01/27/23 08:27 KIKO (Rec: 01/27/23 08:38 KIKO [id number]) E-signed By Jj Gardner, PT Outpatient Therapy Subjective History Subjective History Pt reports h/o chronic LBP for ~15 yrs. Pt reports most recent exacerbation produces left >right sided LBP, with radicular s/s from left hip to toes. Pt reports intermittent weakness in LLE, and 'the MRI showed stenosis and DDD.' Chief Complaint Pain,Stiff,Paresthesia, Weakness Symptom Type Ache,Throb,Sharp,Dull,Stabbing ,Burning,Numbness Symptoms Relieved By Prescription Meds Symptoms Aggravated By Bending/Stooping,Physical Activity,Twisting,Lifting Prior Functional Limitations Lifting,Housework,Sitting, Bending/Stooping Current Functional Limitations Lifting,Housework,Bending/ Stooping Symptom Description Constant but Variable Level of pain today (0-10) 7 Pain scale - at its best (0-10) 7 Pain scale - at its worst (0-10) 9 Lumbopelvic Eval Posture Thoracic Spine Posture Standing Position Flattened Lumbar Spine Posture Standing Position Neutral Assistive device Assistive Devices None / NA Gait Observation General Gait Pattern Observation No Deviations/Normal Palapation tenderness right lumbar spinal tenderness Yes: 2/4 paraspinal tenderness Yes: 2/4 buttock tenderness Yes: 2/4 Lumbar/Sacral Palpation Findings Tenderness,Trigger Point, Muscle Guarding left lumbar spinal tenderness Yes: 3/4 paraspinal tenderness Yes: 3/4 buttock tenderness Yes: 3/4 Lumbar/Sacral Palpation Findings Tenderness,Trigger Point, Muscle Guarding Accessory Movement L-spine Vertebrae Accessory Movements Central P/A [place] that Elicit Symptoms L2 bilateral L3 bilateral L4 bilateral L5 bilateral S1 bilateral Range of Motion Lumbar Spine Active Flexion Range of 0-50 Motion (degrees) Lumbar Spine Active Extension Range of 0-15 Motion (degrees) Left Lumbar Spine Lateral Flexion Active 0-25 Range of Motion (degrees) Right Lumbar Spine Lateral Flexion 0-10 Active Range of Motion (degrees) Lumbar Spine ROM Limitations Soft Tissue Tightness,Pain Manual Muscle Test Bilateral Knee Extension Strength Grade 4 Good Knee Flexion Strength Grade 4 Good Hip Flexion Strength Grade 4- Good- Hip Abduction Strength Grade 3+ Fair+ Hip Adduction Strength Grade 4- Good- Hip External Rotation Strength Grade 4 Good Hip Internal Rotation Strength Grade 4 Good Hip Extension Strength Grade 4- Good- Extensor Hallucis Longus Strength Grade 5 Normal Ankle Dorsiflexion Strength Grade 4 Good Gastronemius/Soleus Strength Grade 4 Good Special Tests Hip Piriformis Test Negative Right,Positive Left Sciatic Nerve Tension Test Negative Right,Positive Left Reverse Sciatic Nerve Tension Test Negative Left,Negative Right Lumbar Long [place] Distraction Test/Manual Positive Traction Oswestry Index Section 1 Pain Intensity The pain comes and goes and is severe Section 2 Personal Care (Washing,Dresing) my way of washing or dressing even though it causes some pain Section 3 Lifting I can only lift very light weights at most Section 4 Walking I have some pain when walking but it does not increase with distance Section 5 Sitting Pain prevents me from sitting for more than one hour Section 6 Standing I cannot stand more than 10 minutes without increasing pain Section 7 Sleeping Because of my pain, my normal night's sleep is less than 6 hours sleep Section 8 Social Life My social life is normal but increases the degree of pain Section 9 Traveling I get extra pain while traveling which compels me to seek alternate fo Section 10 Changing Degreee of Pain My pain is gradually getting worse Score and Risk Level Oswestry Sc 27 Oswestry Risk Level Severe Disability Outpatient Therapy Assessment Impairments Problems/Impairmments Palpation Tenderness,Impaired Range of Motion,Impaired Strength,Impaired Sitting, Impaired Lifting,Impaired Household Care,Impaired Bending,Impaired Work Activities,Subjective C/O Pain ,Impaired Self Care/Self Management Prognosis Rehab Potential Good Clinical Impression Consistent with Diagnosis Yes Short Term Goals Number of Weeks 4 Decreased Palpation Tenderness Yes: 1-2/4 lumbar and hip mm Increase Range of Motion Yes: 75% of WFL LUMBAR AROM Increase Strength Yes: 4/5 B/L LE'S Increase Ability to Sit Yes: 30MIN Improve Ability For Household Care Yes: 30MIN Decrease Subjective C/O Pain Yes: 3-4/10 W/ABOVE ACTIVITIES Patient to be Ind w/ HEP Yes Manager Application Goals Number of Weeks 6-8 Decreased Palpation Tenderness Yes: 0-1/4 LUMBAR AND HIP MM Increase Range of Motion Yes: WFL LUMBAR AROM Increase Strength Yes: 4+-5/5 B/L LE'S Increase Ability to Sit Yes: 60MIN Increase Ability to Drive/Ride in Car Yes: 60MIN Restore Ability to Lift Objects to Waist Yes: 20# Level Improve Ability For Household Care Yes: 60MIN Improve Tolerance to Work Activities Yes: FULL-DUTY WFL Decrease Subjective C/O Pain Yes: 0-2/10 W/ABOVE ACTIVITIES Patient to be Ind w/ Advanced HEP Yes Outpatient Therapy Plan of Care Treatment Plan May Include Therapeutic Exercise Including Home Yes Exercise Program Manual Therapy Techniques Yes Neuromuscular Re-education Yes Therapeutic Activities to Return to Yes Previous Functional/Work Level ADL/Self Care Education Yes Mechanical Traction Yes Dry Needling Yes Thermal Modalities Yes Electrical Stimulation Yes Ultrasound/Phonophoresis Yes Eval/Re-Eval Yes Frequency Times per week 2-3 Duration Number of Weeks 6-8 Addendums This patient is a candidate for social No or vocational rehab? Patient/Guardian verbally acknowledges Yes understanding of treatment program and consents to further treatment? Patient/Guardian verbally acknowledges Yes understanding of diagnosis, prognosis and goals for treatment? G -code Required No Eval Complexity PT Charges 82898 - Low Complexity Shoulder/Elbow Eval Shoulder Objective Measurements Elbow Objective Measurements PHYSICIAN CERTIFICATION: I certify the specified therapy services for Jeni Galvez are required, authorized, and reviewed every 30 days.
== END 2023-02-10 10:45 | disposition home or self-care (01) ==
LOC: PT 09:30
PROVIDERS: PCP Emergency Medicine; Visit Provider Emergency Medicine
DX: M54.50 Low back pain, unspecified (principal)
CPT/HCPCS: 97163

== ENCOUNTER → 2023-05-03 23:00 | Outpatient (CLI) | payer BC, SELFPAY ==
[2023-05-03 19:41] LABS: Cholesterol 189 mg/dl (140-200); Triglycerides 38 mg/dl (30-150); VLDL Cholesterol 8 mg/dL (0-40)
[2023-05-03 19:48] LABS: HDL Cholesterol 95 mg/dl (40-60)
[2023-05-03 20:00] LABS: 25-OH Vitamin D, Total 72.6 ng/mL (30-100)
== END ==
PROVIDERS: PCP Internal Medicine; Visit Provider Internal Medicine
DX: R53.83 Other fatigue (principal); Z79.899 Other long term (current) drug therapy
CPT/HCPCS: 80061; 82306

== ENCOUNTER 2023-06-16 15:15 | Emergency (ER) | payer BC, SELFPAY ==
[2023-06-16 15:16] VITALS: BP 114/75; PULSE 84; RESP 18; TEMP 36.6; O2SAT 99; BMI 18.8
--- NOTE | 2023-06-16 15:46 | ED_ITS ---
Discharge Plan Disposition Patient Disposition: Home, Self-Care Prescriptions Prescriptions: No Action diclofenac sodium 1 % gel 2 g topical QID Qty: 100 0RF Rx Instructions: apply to single elbow, wrist or hand; for hand includes palm/fingers/back of hand lidocaine 5 % adhesive patch,medicated 1 patch topical DAILY Qty: 30 0RF Rx Instructions: leave on most painful area for up to 12 hrs mirtazapine 15 mg tablet See Rx Instructions .ROUTE .COMPLEX Qty: 60 0RF Dose Instruction: TAKE 1/2 TABLET BY MOUTH EVERY DAY Rx Instructions: TAKE 1/2 TABLET BY MOUTH EVERY DAY gabapentin 800 mg tablet See Rx Instructions .ROUTE .COMPLEX Qty: 120 1RF Dose Instruction: TAKE ONE TABLET BY MOUTH FOUR TIMES DAILY MAY CAUSE DROWSINESS Rx Instructions: TAKE ONE TABLET BY MOUTH FOUR TIMES DAILY MAY CAUSE DROWSINESS bupropion HCl 75 mg tablet See Rx Instructions .ROUTE .COMPLEX Qty: 60 5RF Dose Instruction: TAKE ONE TABLET BY MOUTH TWICE DAILY Rx Instructions: TAKE ONE TABLET BY MOUTH TWICE DAILY Referrals Follow up/Referrals: Ayan Joshua DO [Primary Care Provider] - See instructions Activity Restrictions/Add. Instructions Additional Instructions/Restrictions: [facility] [address] [place] [address], [address] [place] [address] Call your family doctor to establish care for this visit to the emergency department and schedule follow-up within 48 hours to ensure improvement. If you have any worsening of your condition or any other concerning signs or symptoms, return to the emergency department or your primary care doctor for further evaluation. Clinical Impressions Clinical Impression: Lumbar spine pain Instructions Patient Instructions: DI for Low Back Pain Discharge ED Provider: Gregory Horner General Adult HPI General Chief complaint: Back Pain/Injury Stated complaint: back pain Time Seen by Provider: 06/16/23 15:35 Mode of Arrival: Ambulatory Source of Information: Patient Limitations: No Limitations Description of Symptoms (Recalled from ER Triage Doc. by RN): pt cc today is low back pain since yesterday, pt has hx of back issues and has seen pcp for it in the past and has MRI's scheduled on the 06/26/23, however since yesterday julio ayers this episode has flared up and she has not been able to get any relief on her own at home History of Present Illness HPI narrative: 47-year-old female chronic back pain presenting with acute back pain. Patient states she does not usually have back pain like this. It is constant, midline, throbbing. She states that she has had multiple MRIs of her lumbar spine, seen every specialist she can imagine, and has been told she cannot have surgery. She also states that since the last time she saw spine surgeon she had 1 episode of weakness of her right leg a few months ago for approximately 30 minutes. Denies bowel or bladder dysfunction. No current weakness and no saddle anesthesia. Related Data Previous Rx's Medication Instructions Recorded diclofenac sodium 1 % topical gel 2 g topical QID #100 grams 12/30/22 lidocaine 5 % topical patch 1 patch topical DAILY #30 ea 12/30/22 mirtazapine 15 mg tablet See Rx Instructions .Route 02/24/23 .COMPLEX #60 tabs bupropion HCl 75 mg tablet See Rx Instructions .Route 05/04/23 .COMPLEX #60 tabs gabapentin 800 mg tablet See Rx Instructions .Route 05/04/23 .COMPLEX #120 tabs Allergies Allergy/AdvReac Type Severity Reaction Status Date / Time acetaminophen Allergy Intermediate Verified 05/03/23 08:48 [From Darvocet-N] codeine Allergy Intermediate Verified 05/03/23 08:48 [From Tylenol-Codeine] hydrocodone [From Vicodin] Allergy Intermediate Verified 05/03/23 08:48 propoxyphene Allergy Intermediate Verified 05/03/23 08:48 [From Darvocet-N] tramadol Allergy Intermediate Verified 05/03/23 08:48 morphine Allergy Verified 05/03/23 08:48 [facility] Disclaimer: The information contained in this section may have been updated after the patient was seen, as this information can be updated by other users. Social History Smoking Status: Current every day smoker tobacco type: e-cigarettes second hand exposure: No alcohol intake: never substance use type: former substance user current occupational status: other Travel in the last 8 weeks: None household members: family housing: house caffeine: Yes ROS Obtained: Yes All systems reviewed & no additional complaints except as documented Physical Exam General General appearance: alert and in no apparent distress Head Head exam: atraumatic and normocephalic Eye Eye exam: Present normal appearance, PERRL and EOMI ENT ENT exam: Present mucous membranes moist Neck Neck exam: Present normal inspection, full ROM and trachea midline Respiratory Respiratory exam: Absent respiratory distress, wheezes, stridor, accessory muscle use or prolonged expiratory phase Cardiovascular Cardiovascular exam: Present normal rhythm Abdominal Exam Abdominal exam: Present soft; Absent distention, tenderness, guarding, rebound or rigidity Extremities Exam Extremities exam: Absent edema Back Exam Back exam: Present tenderness (Improved with pressure lumbar spine) Neurological Exam Neurological exam: Present alert, oriented X3, CN II-XII intact and normal gait; Absent motor sensory deficit Skin Skin exam: Present warm and dry; Absent diaphoresis or erythema Medical Decision Making Medical Records Medical records reviewed: Yes I reviewed the patient's medical records. Chinmay Inquiry Pt receiving controlled substance: No Chinmay was queried for this patient: No Vital Signs: 06/16/23 15:16 06/16/23 15:59 Temperature 97.9 F 97.9 F Temperature Source Oral Pulse Rate 70 Pulse Rate [Right Radial] 84 Respiratory Rate 18 20 Blood Pressure 118/70 Blood Pressure [Right Arm] 114/75 Blood Pressure Mean [Right Arm] 88 02 Sat by Pulse Oximetry 99 Oxygen Delivery Method Room Air Room Air Orders (Tests/Meds): ED MEDICATIONS Discontinued Medications Generic Name Dose Route Start Last Admin Trade Name Geovaniq PRN Reason Stop Dose Admin Dexamethasone 10 mg 06/16/23 15:46 06/16/23 15:56 Dexamethasone 4mg Tablet PO 06/16/23 15:47 10 mg ONCE ONE Administration Medical Decision Narrative: 47-year-old female chronic back pain presenting with acute back pain. Patient states she does not usually have back pain like this. It is constant, midline, throbbing. She states that she has had multiple MRIs of her lumbar spine, seen every specialist she can imagine, and has been told she cannot have surgery. She also states that since the last time she saw spine surgeon she had 1 episode of weakness of her right leg a few months ago for approximately 30 minutes. Denies bowel or bladder dysfunction. No current weakness and no saddle anesthes ia. History was obtained via conversation with patient. On arrival, patient hemodynamically stable, alert, oriented x4, appropriate, GCS 15, moving all extremities spontaneously, pupils equal and reactive to light. Full physical exam performed and significant for midline spinal tenderness was improved with pressure. No neurovascular deficits. Because patient has no red flag signs or symptoms, no further imaging was deemed necessary at this time. Patient has MRI at the end of this month, is recommend she reach out to her primary care provider to repeat MRI her spine given recent complaint of self resolving weakness a couple months prior to this visit. She voiced understanding. Because patient at baseline without signs or symptoms of clinical decompensation, deemed appropriate for discharge. Results were relayed to patient who voiced understanding and were agreeable to outpatient management and follow up. At the time of discharge the patient was hemodynamically stable, tolerating PO, and mobilizing appropriately. Critical Care Critical Care Time Critical Care Time: No
[2023-06-16] MEDS: DEXAMETHASONE 4MG TABLET 10 MG PO (15:56)
[2023-06-16 15:59] VITALS: BP 118/70; PULSE 70; RESP 20; TEMP 36.6; O2SAT 99
== END 2023-06-16 16:01 | disposition home or self-care (01) ==
PROVIDERS: Emergency Provider Emergency Medicine; PCP Internal Medicine
DX: M54.50 Low back pain, unspecified (principal); F17.290 Nicotine dependence, other tobacco product, uncomplicated
CPT/HCPCS: 99283

== ENCOUNTER 2023-06-26 15:23 | Outpatient (CLI) | payer BC, SELFPAY ==
--- NOTE | 2023-06-26 15:24 | MR_ITS ---
FINAL REPORT CLINICAL HISTORY: SI joint + dysfunction / hip osteoarthritis COMPARISON: None FINDINGS: MR LEFT HIP TECHNIQUE: Multiplanar MR without gadolinium enhancement. FINDINGS: ARTICULAR CARTILAGE: No focal defects. MARROW SIGNAL: Normal. JOINT FLUID: Physiologic quantity. ADJACENT SOFT TISSUES: Unremarkable. IMPRESSION: Unremarkable exam. Reviewed, Interpreted and Dictated by Kylah Bunch MD Transcribed by Rachelle Lu Authenticated and [facility]
--- NOTE | 2023-06-26 15:24 | MR_ITS ---
FINAL REPORT TECHNIQUE: Multiplanar MR without contrast CLINICAL HISTORY: SI joint + dysfunction / hip osteoarthritis COMPARISON: None FINDINGS: The marrow signal pattern is normal. There are no erosions or evidence of ankylosis present. No sacroiliitis is identified. There is no evidence of fracture. There is facet arthropathy present at the lumbosacral junction. Adjacent soft tissues are unremarkable. IMPRESSION: Unremarkable exam Reviewed, Interpreted and Dictated by Kylah Bunch MD Transcribed by Rachelle Lu Authenticated and [facility]
--- NOTE | 2023-06-26 15:24 | MR_ITS ---
FINAL REPORT CLINICAL HISTORY: SI joint + dysfunction / hip osteoarthritis COMPARISON: None FINDINGS: MR RIGHT HIP TECHNIQUE: Multiplanar MR without gadolinium enhancement. FINDINGS: ARTICULAR CARTILAGE: No focal defects. MARROW SIGNAL: Normal. JOINT FLUID: Physiologic quantity. ADJACENT SOFT TISSUES: Unremarkable. IMPRESSION: Unremarkable exam. Reviewed, Interpreted and Dictated by Kylah Bunch MD Transcribed by Rachelle Lu Authenticated and [facility]
== END 2023-06-26 23:59 ==
LOC: RAD 15:24
PROVIDERS: PCP Internal Medicine; Visit Provider Internal Medicine
DX: M16.11 Unilateral primary osteoarthritis, right hip (principal); M16.12 Unilateral primary osteoarthritis, left hip; M53.3 Sacrococcygeal disorders, not elsewhere classified
CPT/HCPCS: 72195; 73721

== ENCOUNTER 2023-07-04 08:57 | Emergency (ER) | payer BC, SELFPAY ==
[2023-07-04 08:58] VITALS: BP 117/76; PULSE 70; RESP 15; TEMP 36.7; O2SAT 99; BMI 19.0
[2023-07-04 09:03] VITALS: BP 117/76; PULSE 72; O2SAT 100
--- NOTE | 2023-07-04 09:15 | PC.NURSE ---
dr peterson at bedside
--- NOTE | 2023-07-04 09:21 | ED_ITS ---
Discharge Plan Disposition Patient Disposition: Home, Self-Care Prescriptions Prescriptions: New prednisone 20 mg tablet 60 mg PO DAILY 5 Days Qty: 15 0RF No Action diclofenac sodium 1 % gel 2 g topical QID Qty: 100 0RF Rx Instructions: apply to single elbow, wrist or hand; for hand includes palm/fingers/back of hand lidocaine 5 % adhesive patch,medicated 1 patch topical DAILY Qty: 30 0RF Rx Instructions: leave on most painful area for up to 12 hrs mirtazapine 15 mg tablet See Rx Instructions .ROUTE .COMPLEX Qty: 60 0RF Dose Instruction: TAKE 1/2 TABLET BY MOUTH EVERY DAY Rx Instructions: TAKE 1/2 TABLET BY MOUTH EVERY DAY bupropion HCl 75 mg tablet See Rx Instructions .ROUTE .COMPLEX Qty: 60 5RF Dose Instruction: TAKE ONE TABLET BY MOUTH TWICE DAILY Rx Instructions: TAKE ONE TABLET BY MOUTH TWICE DAILY peg 3350-electrolytes [GaviLyte-G] 236-22.74-6.74 -5.86 gram recon soln 240 ml PO Q10M Qty: 4000 0RF Rx Instructions: follow mailed instructions gabapentin 800 mg tablet 1,200 mg PO TID 30 Days Qty: 135 1RF prednisone 20 mg tablet 40 mg PO DAILY 5 Days Qty: 10 0RF Referrals Follow up/Referrals: Ayan Joshua DO [Primary Care Provider] - See instructions Activity Restrictions/Add. Instructions Additional Instructions/Restrictions: Call your family doctor to establish care for this visit to the emergency department and schedule follow-up within 48 hours to ensure improvement. If you have any worsening of your condition or any other concerning signs or symptoms, return to the emergency department or your primary care doctor for further evaluation. Clinical Impressions Clinical Impression: Sciatica Qualifiers: Laterality: left Qualified Code(s): M54.32 - Sciatica, left side Instructions Patient Instructions: DI for Acute Abdominal Pain Discharge ED Provider: Gregory Horner General Adult HPI General Chief complaint: Abdominal Pain Stated complaint: back pain Time Seen by Provider: 07/04/23 09:05 Mode of Arrival: Ambulatory Source of Information: Patient Limitations: No Limitations Description of Symptoms (Recalled from ER Triage Doc. by RN): pt presents to ED with c/o left leg pain. pain radiates all the way down her leg. pt reports pain worse with walking. pt reports similar back pain a few weeks ago and was seen in the ED. History of Present Illness HPI narrative: 47-year-old with history of chronic back pain presenting with acute on chronic back pain. Patient was here just a couple weeks ago for low back pain. Had hip MRI since that time, it was negative for any acute pathology causing patient's pain. She states that she is having the same lower back pain that starts in the middle of her back, radiates down her left flank/buttock and goes down her left leg. No bowel or bladder dysfunction, no weakness. Last time she was here, I saw her and prescribed 5 days of prednisone. Patient states that it helped until last night, 2/ while she was at work. Related Data Previous Rx's Medication Instructions Recorded diclofenac sodium 1 % topical gel 2 g topical QID #100 grams 12/30/22 lidocaine 5 % topical patch 1 patch topical DAILY #30 ea 12/30/22 mirtazapine 15 mg tablet See Rx Instructions .Route 02/24/23 .COMPLEX #60 tabs bupropion HCl 75 mg tablet See Rx Instructions .Route 05/04/23 .COMPLEX #60 tabs prednisone 20 mg tablet 40 mg PO DAILY 5 days #10 tabs 06/16/23 peg 3350-electrolytes 236 240 ml PO Q10M #4,000 mL 06/22/23 gram-22.74 gram-6.74 gram-5.86 gram solution (GaviLyte-G) gabapentin 800 mg tablet 1,200 mg PO TID 30 days #135 tabs 06/30/23 prednisone 20 mg tablet 60 mg PO DAILY 5 days #15 tabs 07/04/23 Allergies Allergy/AdvReac Type Severity Reaction Status Date / Time acetaminophen Allergy Intermediate Verified 05/03/23 08:48 [From Darvocet-N] codeine Allergy Intermediate Verified 05/03/23 08:48 [From Tylenol-Codeine] hydrocodone [From Vicodin] Allergy Intermediate Verified 05/03/23 08:48 propoxyphene Allergy Intermediate Verified 05/03/23 08:48 [From Darvocet-N] tramadol Allergy Intermediate Verified 05/03/23 08:48 morphine Allergy Verified 05/03/23 08:48 [facility] Disclaimer: The information contained in this section may have been updated after the patient was seen, as this information can be updated by other users. Social History (Reviewed 05/03/23 @ 08:48 by TAMICA Lechuga Smoking Status: Current every day smoker tobacco type: e-cigarettes second hand exposure: No alcohol intake: never substance use type: former substance user current occupational status: other Travel in the last 8 weeks: None household members: family housing: house caffeine: Yes ROS Obtained: Yes All systems reviewed & no additional complaints except as documented Physical Exam General General appearance: alert and in no apparent distress Head Head exam: atraumatic and normocephalic Eye Eye exam: Present normal appearance, PERRL and EOMI ENT ENT exam: Present mucous membranes moist Neck Neck exam: Present normal inspection, full ROM and trachea midline Respiratory Respiratory exam: Absent respiratory distress, wheezes, stridor, accessory muscle use or prolonged expiratory phase Cardiovascular Cardiovascular exam: Present normal rhythm Abdominal Exam Abdominal exam: Present soft; Absent distention, tenderness, guarding, rebound or rigidity Extremities Exam Extremities exam: Absent edema Neurological Exam Neurological exam: Present alert, oriented X3, CN II-XII intact and normal gait; Absent motor sensory deficit Skin Skin exam: Present warm and dry; Absent diaphoresis or erythema Medical Decision Making Medical Records Medical records reviewed: Yes I reviewed the patient's medical records. Chinmay Inquiry Pt receiving controlled substance: No Chinmay was queried for this patient: No Vital Signs: 07/04/23 08:58 Temperature 98.0 F Temperature Source Oral Pulse Rate [Left Radial] 70 Respiratory Rate 15 Blood Pressure [Right Arm] 117/76 Blood Pressure Mean [Right Arm] 89 02 Sat by Pulse Oximetry 99 Oxygen Delivery Method Room Air Medical Decision Narrative: 47-year-old with history of chronic back pain presenting with acute on chronic back pain. Patient was here just a couple weeks ago for low back pain. Had hip MRI since that time, it was negative for any acute pathology causing patient's pain. She states that she is having the same lower back pain that starts in the middle of her back, radiates down her left flank/buttock and goes down her left leg. No bowel or bladder dysfunction, no weakness. Last time she was here, I saw her and prescribed 5 days of prednisone. Patient states that it helped until last night, 2/5 while she was at work. History was obtained via conversation with patient. On arrival, patient hemodynamically stable, alert, oriented x4, appropriate, GCS 15, moving all extremities spontaneously, pupils equal and reactive to light. Full physical exam performed and significant for neurovascularly intact ambulatory woman in no acute distress. Holding her left flank. Straight leg is positive bilaterally. No sensation deficits on my exam. No midline spinal tenderness. Because patient without red flag signs or symptoms, deemed appropriate for outpatient management with steroids. Given patient presentation, workup, history, this most likely represents acute lumbar radiculopathy in the setting of chronic back pain. Because patient at baseline without signs or symptoms of clinical decompensation, deemed appropriate for discharge. Results were relayed to patient who voiced understanding and were agreeable to outpatient management and follow up. At the time of discharge the patient was hemodynamically stable, tolerating PO, and mobilizing appropriately. Patient already has referral to pain management with Dr. Cao and follow-up with her PCP to further manage her pains. Critical Care Critical Care Time Critical Care Time: No
[2023-07-04 09:31] VITALS: BP 106/63; PULSE 58; O2SAT 97
[2023-07-04 09:37] VITALS: BP 106/63; PULSE 68; RESP 16; TEMP 36.7; O2SAT 99
== END 2023-07-04 09:37 | disposition home or self-care (01) ==
PROVIDERS: Emergency Provider Emergency Medicine; PCP Internal Medicine
DX: M54.42 Lumbago with sciatica, left side (principal); M79.605 Pain in left leg; G89.29 Other chronic pain; F17.290 Nicotine dependence, other tobacco product, uncomplicated
CPT/HCPCS: 99283

== ENCOUNTER 2023-07-07 21:46 | Outpatient (CLI) | payer BC, SELFPAY ==
[2023-07-09 14:09] LABS: Varicella Zoster IgG 737 index (Immune >165)
[2023-07-10 12:10] LABS: Varicella-Zoster Ab, IgM 1.48 index (0.00-0.90)
[2023-07-11 12:27] LABS: HSV 2 IgG, Type Spec 7.98
== END 2023-07-07 23:59 ==
LOC: LAB.DROPOF 21:46
PROVIDERS: PCP Family Medicine; Visit Provider Family Medicine
DX: B02.9 Zoster without complications (principal)
CPT/HCPCS: 86695; 86787; 86790

== ENCOUNTER 2023-07-20 14:51 | Outpatient (POV) | payer BC, SELFPAY ==
--- NOTE | 2023-07-20 15:13 | A.OFFVIS_ITS ---
HPI Data of Consult Patient: new to practice Consult date: 07/20/23 Requesting Physician: Joana Paredes APRN Primary Care Provider: Ayan Joshua DO Consult Narrative Reason for consult: Low back pain, left leg pain, left buttocks shingles History of present illness: Ms. Galvez is a 47 year old female who presents today as a new patient. She is a referral from Dr. Chatman's office. Today she rates her pain a 10 out of 10. Patient states she has pain all throughout her low back with radiating symptoms down her entire left leg. Patient does state that she recently just had shingles on her left buttocks and just finished up the medication last week. She states that she still continues to have significant pain with this as well. She states the rash is starting to heal and she is not really having as much pain into her buttocks area where the rash is but more so down the entire leg. It patient does describe her pain as a sharp achy sensation that can cause sensations of almost being on fire. She does have the numbness and tingling. She does state the pain interferes with her ability perform activities of daily living such as cooking and cleaning. She states she can even walk very far without having the sharp shooting pains. Patient states that she has been off work due to the worsening pain. Patient states that she has had this on and off again over more than 10 years unrelated to any specific trauma or injury. Patient has tried [id number] Tylenol and ibuprofen along with heat and ice and topicals with minimal relief. Patient states she has had physical therapy in the past with no additional relief. Patient was also at a pain clinic in the past and states that they did injections however they did not improve her symptoms overall.Patient is on Suboxone therapy and gabapentin 800 mg from outside providers. Her Chinmay has been reviewed. CC: Joana Paredes APRN [facility] Disclaimer: The information contained in this section may have been updated after the patient was seen, as this information can be updated by other users. Medical History (Updated 07/20/23 @ 15:28 by Joana Paredes APRN) Chronic back pain Shingles Surgical History (Updated 07/20/23 @ 15:17 by Zakia Mejía RN) H/O: hysterectomy Family History (Updated 07/20/23 @ 15:17 by Zakia Mejía RN) Other Unknown family medical history Social History (Updated 07/20/23 @ 15:18 by Zakia Mejía RN) Smoking Status: Current every day smoker tobacco type: e-cigarettes second hand exposure: No alcohol intake: never substance use type: former substance user current occupational status: employed Travel in the last 8 weeks: None household members: family housing: house caffeine: Yes Review of Systems Review of Systems Review of systems:: pertinent systems reviewed and negative unless documented below Review of systems (narrative): Review of Systems: General: No recent weight changes, no fever, no sleep disturbances Respiratory: No cough, no shortness of air, no recurring pulmonary infections Cardiovascular/peripheral vascular: No chest pain, no palpitations, no edema, no shortness of breath Gastrointestinal: No new onset incontinence, normal bowel movements reported Genitourinary: No new onset incontinence Musculoskeletal: Low back pain, Left leg pain Psychiatric: [Normal mood/affect] Neurological: [Denies weakness in extremities], [denies balance issues] Meds Home Medications and Allergies Home Medications Medication Instructions Recorded Confirmed Type diclofenac sodium 1 % topical gel 2 g topical QID #100 grams 12/30/22 07/20/23 Rx lidocaine 5 % topical patch 1 patch topical DAILY #30 ea 12/30/22 07/20/23 Rx mirtazapine 15 mg tablet See Rx Instructions .Route 02/24/23 07/20/23 Rx .COMPLEX #60 tabs bupropion HCl 75 mg tablet See Rx Instructions .Route 05/04/23 07/20/23 Rx .COMPLEX #60 tabs gabapentin 800 mg tablet 1,200 mg PO TID 30 days #135 tabs 06/30/23 07/20/23 Rx buprenorphine 8 mg-naloxone 2 mg 1 tab sublingual DIRECTED . 07/07/23 07/20/23 History sublingual tablet New Prescriptions to Start Prescriptions: Allergies Allergy/AdvReac Type Severity Reaction Status Date / Time acetaminophen Allergy Intermediate Verified 07/17/23 11:05 [From Darvocet-N] codeine Allergy Intermediate Verified 07/17/23 11:05 [From Tylenol-Codeine] hydrocodone [From Vicodin] Allergy Intermediate Verified 07/17/23 11:05 propoxyphene Allergy Intermediate Verified 07/17/23 11:05 [From Darvocet-N] tramadol Allergy Intermediate Verified 07/17/23 11:05 morphine Allergy Verified 07/17/23 11:05 Objective Narrative: Physical Exam: General: Alert and oriented x3, no acute distress, pleasant and cooperative Lungs: Respirations even and unlabored, symmetrical chest expansion Eyes: PERRL Musculoskeletal: Flexion and extension of lumbar [spine] somewhat guarded secondary to pain, [antalgic gait noted] positive left leg raise with decreased sensation to light touch and decreased reflexes Neurological: Speech clear, no gross sensory deficit Additional findings Additional findings: FINDINGS: Multiplanar MR imaging of the lumbar spine was performed without contrast. On the sagittal T2-weighted images, there is abnormal decreased signal in the L4-L5 and L5-S1 discs. The vertebrae are of normal height. The vertebral alignment is normal. L1-2: There is no significant canal stenosis or neural foraminal narrowing. L2-3: There is no significant canal stenosis or neural foraminal narrowing. L3-4: There is no significant canal stenosis or neural foraminal narrowing. L4-5: There is a moderate diffuse disc bulge with moderate spinal and bilateral neural foraminal narrowing. L5-S1: There is a small paracentral disc extrusion which extends inferiorly from the disc space. This produces mild narrowing of the left L5-S1 foramen and the left lateral recess. IMPRESSION: L4-5 moderate bulge, canal and bilateral neural foraminal narrowing. L5-S1 left paracentral disc extrusion extending inferiorly with narrowing of the L5-S1 neural foramen and the lateral recess. Reviewed, Interpreted and Dictated by Bib Maxwell MD Transcribed by Rachelle Lu Authenticated and [facility] Assessment and Plan *Assessment and plan (1) Low back pain: Problem Comment: In April the plan was to send this patient to Dr. Cao. She has yet to see him but has another reason to see Dr. Cao i.e. the zoster and shingles pain that she is experiencing. I have discussed this with her and we will send her to Dr. Cao soon as possible. At this point we will continue the gabapentin. Status: Chronic Qualifiers: Back pain laterality: bilateral Chronicity: chronic Sciatica presence: unspecified whether sciatica present Qualified Code(s): M54.5 - Low back pain; G89.29 - Other chronic pain Category: Medical Code(s): M54.5 - Low back pain (2) Degenerative disc disease, lumbar: Status: Acute Category: Medical Code(s): M51.36 - Other intervertebral disc degeneration, lumbar region (3) Lumbar radiculopathy: Status: Acute Category: Medical Code(s): M54.16 - Radiculopathy, lumbar region (4) Left leg pain: Status: Acute Category: Medical Code(s): M79.605 - Pain in left leg (5) Shingles rash: Problem Comment: Patient has documented herpes zoster with neuropathic pain down the leg. Again Dr. Cao may be helpful. Once this rash has resolved we will give her the shingles vaccine. Not sure what to do with this history that she gives of having this issue every 3 months for the last 10 years. Status: Acute Qualifiers: Herpes zoster complications: with other complications Qualified Code(s): B02.8 - Zoster with other complications Category: Medical Code(s): B02.9 - Zoster without complications Plan Patient is experiencing significant pain in her low back with radiating symptoms down into her lower extremities. Patient is limited range of motion of her lumbar spine along with a positive left leg raise and decreased sensation to light touch and decreased reflexes. I have discussed with patient that she may benefit from a left transforaminal epidural steroid injection. Risk and benefits were discussed with the patient and she would like to proceed forward with this plan of care. Patient is not on any blood thinners. I will also order the patient a compounded cream. Patient has tried and failed conservative treatment such as oral medications, heat and ice, topicals, at home stretching exercise for longer than 6 weeks. Patient will be scheduled for a left transforaminal epidural steroid injection L4-L5 and L5-S1 under fluoroscopy. patient has been instructed to contact the clinic with any concerns before the next appointment. Dr. Cao has reviewed this note and agrees with this plan of care. This note was dictated using voice recognition software and make contain errors or omissions.
[2023-07-20 15:15] VITALS: BP 116/43; PULSE 77; RESP 18; O2SAT 97; BMI 19.2
== END 2023-07-20 23:59 | disposition home or self-care (01) ==
LOC: SC.PAIN 14:53
PROVIDERS: PCP Internal Medicine; Visit Provider Nurse Practitioner Family
DX: M51.16 Intervertebral disc disorders with radiculopathy, lumbar region (principal); G89.29 Other chronic pain; M79.605 Pain in left leg; B02.8 Zoster with other complications; M54.50 Low back pain, unspecified
CPT/HCPCS: 99202; G0463

== ENCOUNTER 2024-02-05 10:12 | Outpatient (CLI) | payer BC, SELFPAY ==
[2024-02-05 18:53] LABS: Microalbumin/Creatinine Ratio 9.8
[2024-02-05 18:55] LABS: Creatinine,Urine Random 97 mg/dL (Not Estab.)
[2024-02-05 19:07] LABS: Basophils % 0.7 % (0.1-2.0); Eosinophils # 0.1 K/mm3 (0.0-0.4); Eosinophils % 1.7 % (0.1-12.0); Hematocrit 38.6 % (37.0-47.0); Lymphocytes # 1.5 K/mm3 (0.7-4.5); Lymphocytes % 41.5 % (10-50); Mean Corpuscular Hemoglobin 30.5 pg (27.0-31.2); Mean Corpuscular Volume 98.4 fl (81-99); Mean Platelet Volume 9.4 fl (7.4-10.4); Monocytes # 0.2 K/mm3 (0.1-1.0); Monocytes % 6.1 % (1.7-9.3); Neutrophils # 1.8 K/mm3 (1.8-7.8); Neutrophils % 49.9 % (37.0-80.0); Platelet Count 168 K/mm3 (142-424); Red Blood Count 3.93 M/mm3 (4.20-5.40); White Blood Count 3.6 K/mm3 (4.8-10.8)
[2024-02-05 19:26] LABS: Alanine Aminotransferase 17 U/L (12-78); Albumin Level 4.2 g/dl (3.5-5.0); Albumin/Globulin Ratio 1.3 (1.1-1.8); Alkaline Phosphatase 102 U/L (38-126); Aspartate Amino Transferase 34 U/L (14-36); Bilirubin,Total 0.4 mg/dl (0.2-1.3); Blood Urea Nitrogen 7 mg/dl (7-17); Calcium 9.1 mg/dl (8.4-10.2); Carbon Dioxide 34 mmol/L (22.0-30.0); Chloride 101 mmol/L (98-107); Estimated Glomerular Filt Rate 107 ml/min (>60); GFR (African American) 130 ML/MIN (>60); Globulin 3.2 g/dL (1.3-3.2); Glucose 101 mg/dl (74-100); Sodium 139 mmol/L (136-145); Total Protein,Serum 7.4 g/dl (6.3-8.2)
[2024-02-05 19:47] LABS: Hemoglobin A1C 5.7 % (4.0-6.0)
[2024-02-05 20:42] LABS: Thyroid Stimulating Hormone 1.82 uIU/mL (0.465-4.68)
[2024-02-05 21:51] LABS: 25-OH Vitamin D, Total 43.8 ng/mL (30-100)
[2024-02-07 05:10] LABS: HBsAg Screen Negative (Negative); HCV Ab Non Reactive (Non Reactive); Hep A Ab, IGM Negative (Negative); Hep B Core Ab, IgM Negative (Negative)
== END 2024-02-05 23:59 | disposition home or self-care (01) ==
LOC: LAB.DROPOF 02-06 10:16
PROVIDERS: PCP Internal Medicine; Visit Provider Internal Medicine
DX: M47.27 Other spondylosis with radiculopathy, lumbosacral region (principal); R20.0 Anesthesia of skin; R20.2 Paresthesia of skin
CPT/HCPCS: 80050; 80053; 80074; 82043; 82306; 82570; 83036; 84443; 85025

== ENCOUNTER 2025-02-19 16:01 | Outpatient (CLI) | payer BC, SELFPAY ==
--- OUTSIDE RECORDS SUMMARY | 2025-02-19 16:03 | XMS_ITS | Clinical Summary ---
Author Organization Healthcare Address [address] [place] [address] Care Team Providers Care Consumer Marketing Analyst Name Role Phone Unavailable Primary Care Provider Unavailabl e Family History Medical History Relation Name Comments Coronary artery disease Other 1 Diabetes Other 2 Hyperlipidemia Other 3 Hypertension Other 4 Other cancer Other 5 Relation Name Status Comments Other 1 Other 2 Other 3 Other 4 Other 5 Social History Tobacco Use Types Packs/Day Years Used Date Smoking Tobacco: Never Assessed Comments Unknown Sex and Gender Information Value Date Recorded Sex Assigned at Not on file Legal Sex Female 7:35 PM EDT Gender Identity Not on file Sexual Orientation Not on file Last Filed Vital Signs Vital Sign Reading Time Taken Comments Blood Pressure - - Pulse - - Temperature - - Respiratory Rate - - Oxygen Saturation - - Inhaled Oxygen Concentration - - Weight 58.5 kg (129 lb) 03/26/2012 7:59 AM EDT Height 170.2 cm (5' 7 ) 03/26/2012 7:59 AM EDT Body Mass Index 20.2 03/26/2012 7:59 AM EDT Plan of Treatment Not on file
--- NOTE | 2025-02-19 16:07 | XR_ITS ---
FINAL REPORT CLINICAL HISTORY: Left Foot Pain FINDINGS: AP, oblique and lateral views of the left foot were obtained. There is no acute fracture or dislocation. The joint spaces are preserved. Soft tissues are unremarkable. IMPRESSION: No acute osseous abnormality of the left foot. Reviewed, Interpreted and Dictated by Lanie Siddiqui MD Transcribed by Delia Freeman Authenticated and [facility]
--- NOTE | 2025-02-19 16:07 | XR_ITS ---
FINAL REPORT CLINICAL HISTORY: Pain of right foot FINDINGS: AP, oblique and lateral views of the right foot were obtained. There is no acute fracture or dislocation. The joint spaces are preserved. Soft tissues are unremarkable. IMPRESSION: No acute osseous abnormality of the right foot. Reviewed, Interpreted and Dictated by Lanie Siddiqui MD Transcribed by Delia Freeman Authenticated and [facility]
== END 2025-02-19 23:59 | disposition home or self-care (01) ==
LOC: RAD 16:01
PROVIDERS: PCP Family Medicine; Visit Provider Nurse Practitioner
DX: M79.672 Pain in left foot (principal); M79.671 Pain in right foot
CPT/HCPCS: 73630

== ENCOUNTER 2025-02-20 10:00 | Outpatient (CLI) | payer BC, SELFPAY ==
--- OUTSIDE RECORDS SUMMARY | 2025-02-24 08:32 | XMS_ITS | Clinical Summary ---
Author Organization Healthcare Address [address] [place] [address] Care Team Providers Care Reed Maker Name Role Phone Unavailable Primary Care Provider [...]
== END 2025-02-20 23:59 ==
LOC: LAB.DROPOF 02-24 08:16
PROVIDERS: PCP Nurse Practitioner; Visit Provider Nurse Practitioner
DX: B35.1 Tinea unguium (principal)
CPT/HCPCS: 87101; 87220

== ENCOUNTER 2025-05-01 11:06 | Day surgery (SDC) | payer BC, SELFPAY ==
--- NOTE | 2025-04-27 11:18 | EXP.HP ---
History of Present Illness *Admission Date: 05/01/25 *History of present illness: Mrs. Galvez is a 49-year-old female who is here for initial screening colonoscopy. The examination is deemed medically necessary for screening colonoscopy. The patient has been seen, interviewed and examined prior to the procedure by both myself and the anesthesia provider. [facility] Disclaimer: The information contained in this section may have been updated after the patient was seen, as this information can be updated by other users. Medical History Abnormal vaginal bleeding Urinary incontinence Breast cancer screening by mammogram Screening for colon cancer Left foot pain Right foot pain Opioid use disorder, severe, on maintenance therapy, dependence Plantar fascial fibromatosis Numbness and tingling Arthritis Depression Anxiety Chronic back pain Shingles Surgical History History of cholecystectomy History of bladder surgery History of knee surgery History of shoulder surgery H/O: hysterectomy Family History Other Asthma Cancer Diabetes Heart attack Hyperlipidemia Hypertension Stroke Unknown family medical history Social History Smoking Status: Current every day smoker tobacco type: e-cigarettes second hand exposure: No alcohol intake: never substance use type: former substance user and heroin current occupational status: employed Travel in the last 8 weeks?: None household members: family housing: house caffeine: Yes Have you lived/traveled outside [place] in past 30 days?: No Contact w/someone who lives/traveled outside US past 30 days?: No Exposure to someone with infectious disease in past 14 days?: No Do you have a fever (greater than 100.4 F or 38 C)?: No Have you tested positive for COVID-19?: No Exposed to someone with COVID-19 in past 14 days?: No Do you have a sore throat?: No Do you have a cough?: No Do you have any weakness?: No Are you experiencing any nausea/vomitting?: Yes Do you have any diarrhea?: No Are you experiencing any unusual bleeding?: No Do you have any muscle aches/pain?: No Do you have any abdominal pain?: No Are you experiencing loss of taste or smell?: No Other Medical History Have you received the Flu Vaccine for this season: No Have you received the Pneumonia Vaccine: No Review of Systems Review of Systems Review of systems (narrative): Negative *Cardiovascular Comments: Negative *Gastrointestinal Comments: Negative *Genitourinary Comments: Negative *Musculoskeletal Comments: Negative *Neurologic Comments: Negative Meds Home Medications and Allergies Home Medications ?Medication ?Instructions ?Recorded ?Confirmed ?Type buprenorphine 8 mg-naloxone 2 mg 1 tab sublingual DIRECTED . 07/07/23 05/01/25 History sublingual tablet lidocaine 5 % topical patch 1 patch topical DAILY PRN Pain 08/07/23 05/01/25 History bupropion HCl 75 mg tablet See Rx Instructions .Route 11/04/24 05/01/25 Rx .COMPLEX #60 tabs gabapentin 800 mg tablet 800 mg PO TID #90 tabs 02/17/25 05/01/25 Rx oxcarbazepine 300 mg tablet 450 mg (1.5 x 300 mg) PO BID #60 02/17/25 05/01/25 Rx (Trileptal) tabs zolpidem 5 mg tablet 5 mg PO HS #30 tabs 04/05/25 05/01/25 Rx sodium,potassium,mag sulfates 17.5 See Rx Instructions PO .COMPLEX 04/14/25 05/01/25 Rx gram-3.13 gram-1.6 gram oral soln #354 mL (Suprep Bowel Prep Kit) New Prescriptions to Start Prescriptions: Allergies Allergy/AdvReac Type Severity Reaction Status Date / Time acetaminophen (From Allergy Intermediate Hives Verified 05/01/25 11:48 Darvocet-N) codeine (From Allergy Intermediate Hives Verified 05/01/25 11:48 Tylenol-Codeine) hydrocodone (From Vicodin) Allergy Intermediate Hives Verified 05/01/25 11:48 propoxyphene (From Allergy Intermediate Hives Verified 05/01/25 11:48 Darvocet-N) tramadol Allergy Intermediate Hives Verified 05/01/25 11:48 morphine Allergy Hives Verified 05/01/25 11:48 Exam *Routine HEENT Exam Head: Present normocephalic Eye: Present EOMI and PERRL ENT: Present mucous membranes moist *Routine Neck Exam Neck: Present supple *Routine Respiratory Exam Respiratory: Present CTA bilaterally *Routine Cardiovascular Exam Cardiovascular: Present RRR *Routine Abdominal Exam Abdominal: Present soft and normoactive bowel sounds; Absent tenderness *Routine Rectal Exam Rectal:: deferred *Routine Genitalia Exam Genitalia:: deferred *Routine Extremities Exam Extremities: Absent cyanosis, clubbing or edema *Routine Skin Exam Skin: Present warm; Absent rash *Routine Neurological Exam Neurological: Present alert and oriented X3 Assessment and Plan *Assessment and plan (1) Screening for colon cancer: Status: Acute Category: Medical Code(s): Z12.11 - Encounter for screening for malignant neoplasm of colon Plan A/P: 1. Screening for colon cancer is the preprocedural diagnosis. The patient will be anesthetized/sedated using MAC sedation. The patient has been seen and examined. Cardiac and lung assessment prior to the examination is stable. Proceed with planned screening colonoscopy.
--- NOTE | 2025-04-29 11:01 | SUR.PREOP ---
left message regarding arrival time, npo status, and need for regional tanker truck driver. gave callback number for questions/concerns
--- NOTE | 2025-05-01 06:51 | P.PCN_ITS ---
[facility] Procedure Note Date: 05/01/25 Time: 13:37 Procedure Note:: Colonoscopy Procedure Report: Colonoscopy with cold snare polypectomy Endoscopist: Gm Small II, MD Referring physician: Karan Segal MD Date of Procedure: May 01, 2025 Equipment: Olympus [id number] adult colonoscope Sedation: MAC sedation Indication: Mrs. Galvez is a 49-year-old female who is here for screening colonoscopy. The patient does have a history of mixed IBS (alternating constipation and diarrhea). She reports no abdominal pain, weight loss, change in her bowel habits or rectal bleeding. She reports no family history of colon cancer. She did have a colonoscopy 10 years ago. The examination is deemed medically necessary for screening colonoscopy. Procedure: Prior to the procedure, a history and physical exam was performed, and patient's medications and allergies were reviewed. The risks, benefits and alternatives of the sedation and procedure were discussed with the patient. All questions were answered and informed consent was obtained. The patient was brought to the procedure room. Patient identification and proposed procedure were verified by the physician and the nurse. The patient was placed in a left lateral decubitus position and the scope was passed under direct vision. Throughout the procedure, the patient's blood pressure, pulse, and oxygen saturations were monitored continuously. The colonoscopy was accomplished without difficulty. The patient tolerated the procedure well. Findings: On digital rectal examination there was normal rectal tone. There were no external hemorrhoids. The colonoscope was introduced through the anal canal to the rectum and advanced to the cecum. The ileocecal valve and appendiceal orifice were identified. The scope was advanced a short distance into the ileum which appeared grossly normal. The scope was then withdrawn into the colon. There were 2 colon polyps (ascending x 1 (3 to 4 mm) and transverse x 1 (9 mm)). Both of these were removed via cold snare polypectomy. The remaining cecum, ascending, transverse, descending, sigmoid and rectum were grossly normal. There were no other mucosal abnormalities identified. Upon retroflexion within the rectum there were no internal hemorrhoids. The preparation was excellent throughout with [place] Preparation Score of 9. The cecal time was 12 minutes. Impression: 1. Transverse colon polyp (9 mm) 2. Ascending colon polyp (3 to 4 mm) Plan: I will follow-up the polyp histology and recommend repeat screening/surveillance colonoscopy again in 5 years.
[2025-05-01 11:55] VITALS: BP 106/62; PULSE 62; RESP 20; TEMP 36.3; O2SAT 97
[2025-05-01 12:02] VITALS: BMI 19.9
[2025-05-01] MEDS: LACTATED RINGERS 1000ML 1,000 ML 50 ML IV (12:07)
--- NOTE | 2025-05-01 12:21 | EXP.ANES.CKL ---
[facility] Disclaimer: The information contained in this section may have been updated after the patient was seen, as this information can be updated by other users. Medical History Abnormal vaginal bleeding Urinary incontinence Breast cancer screening by mammogram Screening for colon cancer Left foot pain Right foot pain Opioid use disorder, severe, on maintenance therapy, dependence Plantar fascial fibromatosis Numbness and tingling Arthritis Depression Anxiety Chronic back pain Shingles Surgical History History of cholecystectomy History of bladder surgery History of knee surgery History of shoulder surgery H/O: hysterectomy Family History Other Asthma Cancer Diabetes Heart attack Hyperlipidemia Hypertension Stroke Unknown family medical history Social History Smoking Status: Current every day smoker tobacco type: e-cigarettes second hand exposure: No alcohol intake: never substance use type: former substance user and heroin current occupational status: employed Travel in the last 8 weeks?: None household members: family housing: house caffeine: Yes Have you lived/traveled outside [place] in past 30 days?: No Contact w/someone who lives/traveled outside [place] past 30 days?: No Exposure to someone with infectious disease in past 14 days?: No Do you have a fever (greater than 100.4 F or 38 C)?: No Have you tested positive for COVID-19?: No Exposed to someone with COVID-19 in past 14 days?: No Do you have a sore throat?: No Do you have a cough?: No Do you have any weakness?: No Are you experiencing any nausea/vomitting?: Yes Do you have any diarrhea?: No Are you experiencing any unusual bleeding?: No Do you have any muscle aches/pain?: No Do you have any abdominal pain?: No Are you experiencing loss of taste or smell?: No [facility] [place] Anesthesia Checklist Patient Identification Patient Identification: Arm Band and Family Structural Data Admitted From: Home Planned Operative Procedure/s: colonoscop Consent for Planned Operative Procedure(s) Verified: Yes Verified Documents: Surgical Consent and History and Physical NPO Status Verified Time NPO: 00:00 Additional verifications Patient : No Anesthesia Reactions: No (Nausea) Hx Blood Transfusions: No Blood Transfusion Reaction: No Cephalosporin Allergy: No Previous Colonoscopy: Yes Airway Assessment Mallampati Score:: Class II C-Spine Mobility Assessed: Yes TMJ Mobility Assessed: Yes Dentition: Edentulous Neurological Assessment Level of Consciousness: Awake, Alert, Appropriate and Follows Commands Hx Seizures: No Numbness or tingling in extremities: No Anesthesia Plan Anesthesia Risk discussed: Yes ASA Class: II Anesthesia Type: MAC Preoperative Comments Pre-Operative Comments: Vapes. Screening. Sciatic pain.
[2025-05-01 13:42] VITALS: BP 87/48; PULSE 60; RESP 18; TEMP 36.2; O2SAT 98
[2025-05-01 13:52] VITALS: BP 92/64; PULSE 73; RESP 18; TEMP 36.2; O2SAT 100
[2025-05-01 14:02] VITALS: BP 103/67; PULSE 68; RESP 19; TEMP 36.2; O2SAT 100
[2025-05-01 14:12] VITALS: BP 108/69; PULSE 68; RESP 18; TEMP 36.2; O2SAT 100
== END 2025-05-01 14:22 | disposition home or self-care (01) ==
PROVIDERS: PCP Family Medicine; Visit Provider Internal Medicine Gastroenterology
PROC: 0DJD8ZZ Inspection of Lower Intestinal Tract, Via Natural or Artificial Opening Endoscopic (ICD-10-PCS; CPT 45378; principal; 2025-05-01 12:30)
DX: Z12.11 Encounter for screening for malignant neoplasm of colon (principal); D12.3 Benign neoplasm of transverse colon; D12.2 Benign neoplasm of ascending colon; K58.2 Mixed irritable bowel syndrome; F17.290 Nicotine dependence, other tobacco product, uncomplicated
CPT/HCPCS: 45385; J2003; J2704; J7120